=== PATIENT | male | born 1960 | race Caucasian/White ===

== ENCOUNTER 2016-12-26 10:54 | Day surgery (SDC) | payer OTHER ==
[~2016-12-26] VITALS: Ht 172.7 cm; Wt 65.8 kg
[~2016-12-26 10:54] MED LIST: ALBUTEROL2.5 MG/3 M IN; APAP/HYDRO325 MG/10 OR; AUGMENTIN875TAB OR; B12 LIQUID IM; B12 LIQUID OR; CARAFATE1 GM/10 M1 OR; CARISOPRODOL350 MG PO; CEPHALEXIN500 MG OR; CEPHALEXIN500 MG PO; CHANTIX CONTINUI1 MG PO; CHANTIX STARTIN0.5 & PO; CIPROFLOXACN500 MG PO; DEPO-MEDROL80 MG/ML IM; DEXILANT60 MG PO; DILAUDID8 MG OR; DURAGESIC25 MCG/PAT TD; DURAGESIC75 MCG/H1 TD; ENSURE COMPLETE NUTR PO; FENTANYL75 MCG/HR TD; FLEXERIL OR; FLEXERIL PO; FLOMAX0.4 M1 PO; GABAPENTIN300 MG PO; HYDROCO/APAP1 T13 OR; IBUPROFEN600 MG PO; LEVAQUIN500 MG PO; LORTAB 10 PO; LORTAB 10-325 M1 TAB PO; LORTAB 1010 MG PO; LORTAB 7.5-3251 TAB PO; LORTAB5 PO; LOVASTATIN20 MG PO; MEDDOSEPAK PO; METRONIDAZOL500 MG PO; NABUMETONE750 MG PO; NAPROSYN375 MG PO; NAPROSYN500 MG PO; NAPROXEN375 MG; NAPROXEN375 MG PO; NAPROXEN500 MG PO; NEBULIZE1 INH; NEBULIZE2 IN; NEXIUM40 M1 PO; NO; NO HOME MEDS; NO MEDS AT THIS TIME; OMEPRAZOLE40 MG PO; OXYCOD/APAP1 TA4; OXYCODONE HCL30 MG PO; OXYCODONE30 MG PO; OXYCONTIN30 MG PO; PANTOPRAZOLE SO40 MG PO; PERCOCET 5/321 COMBO PO; PERCOCET1 TA4 PO; PREDNISONE10 MG PO; PREVACID30 M3 PO; PRILOSEC40 MG PO; PT DENIES MEDS; SOMA250 MG OR; SOMA350 MG PO; STERAPRED DS10 MG PO; TRAZODONE50 MG PO; TUBERSOL5 MG/0.1 M ID; VICOPROFEN OR; ZANTAC 150; [UNRECOGNIZED DRUG - REMARK]
[2016-12-26 13:13] VITALS: BP 102/55
== END 2016-12-26 13:35 | disposition home or self-care (01) | DRG 392 ==
LOC: ENDO 10:54 → ORM 14:10 → ENDO 14:20 → ORM 15:30 → ENDO 21:30
PROVIDERS: ATTEND Internal Medicine Gastroenterology
PROC: 0DB48ZX Excision of Esophagogastric Junction, Via Natural or Artificial Opening Endoscopic, Diagnostic (ICD-10-PCS; principal; 2016-12-26)
PROC: 0DB58ZX Excision of Esophagus, Via Natural or Artificial Opening Endoscopic, Diagnostic (ICD-10-PCS; 2016-12-26)
DX: R13.10 Dysphagia, unspecified (principal); K22.8 Other specified diseases of esophagus; R11.0 Nausea; K21.9 Gastro-esophageal reflux disease without esophagitis; K59.00 Constipation, unspecified; K22.70 Barrett's esophagus without dysplasia; K29.70 Gastritis, unspecified, without bleeding; Q40.8 Other specified congenital malformations of upper alimentary tract; K44.9 Diaphragmatic hernia without obstruction or gangrene; Z86.010 Personal history of colon polyps

== ENCOUNTER 2017-03-28 09:25 | Emergency (ER) | payer OTHER ==
[~2017-03-28] VITALS: Ht 172.7 cm; Wt 50.0 kg
[2017-03-28] MEDS ORDERED: DURAGESIC100 MCG/HR TD (09:37)
[2017-03-28 10:44] LABS: HEMATOCRIT 34.2 % (39.0-50.0); HEMOGLOBIN 11.2 g/dl (14.0-18.0); IMMATURE GRANULOCYTES 0.3 % (0.0-1.0); MEAN CELL VOLUME 95.3 fL CALC (80.0-100.0); MEAN CORPUSCULAR HGB 31.2 pG CALC (26.0-32.0); MEAN CORPUSCULAR HGB CONC 32.7 g/L CALC (32.0-36.0); NEUT# 10.33 thou/uL (1.82-7.42); RED BLOOD COUNT 3.59 mill/uL (4.70-6.10); RED CELL DISTRI WIDTH 12.8 % (11.5-15.5)
[2017-03-28 10:47] LABS: URINE BILIRUBIN - DIPSTICK NEGATIVE (NEGATIVE); URINE BLOOD DIPSTICK NEGATIVE (NEGATIVE); URINE CLARITY CLEAR; URINE COLOR YELLOW; URINE GLUCOSE - DIPSTICK NEGATIVE (NEGATIVE); URINE KETONE NEGATIVE (NEGATIVE); URINE LEUK ESTERASE NEGATIVE (NEGATIVE); URINE NITRITE - DIPSTICK NEGATIVE (Negative); URINE PH 6.5 (4.5-8.0); URINE PROTEIN - DIPSTICK NEGATIVE (NEG-TRACE); URINE SPECIFIC GRAVITY 1.015; URINE UROBILINOGEN - DIPSTICK 0.2 E.U./dL (0.2)
[2017-03-28 10:49] LABS: ALBUMIN 4.2 g/dL (3.2-5.0); ALKALINE PHOSPHATASE 116 u/l (38-126); ANION GAP 16 (6-22 (CALC)); BILIRUBIN, TOTAL 0.5 mg/dL (0.0-1.4); BUN 12 mg/dL (9-20); BUN/CREATININE RATIO 13 (12-20 (CALC)); CALCIUM 9.7 mg/dL (8.4-10.2); CARBON DIOXIDE 26 mmol/l (22-30); CHLORIDE 103 mmol/l (95-108); CREATININE 0.9 mg/dL (0.7-1.3); GFR > 60 ML/MIN (>=60 (CALC)); GFR FOR AFR.AMER. > 60 ML/MIN (>=60 (CALC)); GLUCOSE 82 mg/dL (75-110); SGOT/AST 37 u/l (17-59); SGPT/ALT 48 u/l (21-72); SODIUM 141 mmol/l (137-146); TOTAL PROTEIN 6.9 g/dL (6.3-8.2)
[2017-03-28] MEDS ORDERED: CEPHALEXIN500 M1 PO (11:36)
[2017-03-28 11:41] VITALS: BP 106/62
== END 2017-03-28 12:25 | disposition home or self-care (01) | DRG 816 ==
LOC: ED 09:25
PROVIDERS: Emergency Medicine
DX: D72.829 Elevated white blood cell count, unspecified (principal); N39.9 Disorder of urinary system, unspecified; M19.90 Unspecified osteoarthritis, unspecified site; N40.0 Benign prostatic hyperplasia without lower urinary tract symptoms; Z98.890 Other specified postprocedural states

== ENCOUNTER 2017-04-06 23:04 | Emergency (ER) | payer OTHER ==
[~2017-04-06] VITALS: Ht 172.7 cm; Wt 66.6 kg
[~2017-04-06 23:04] MED LIST changes: +CEPHALEXIN500 M1 PO; +DURAGESIC100 MCG/HR TD
[2017-04-07] MEDS ORDERED: LORTAB 5/3255 MG PO (00:34)
[2017-04-07 01:14] VITALS: BP 128/68
== END 2017-04-07 01:14 | disposition home or self-care (01) | DRG 93 ==
LOC: ED 23:04
DX: G89.29 Other chronic pain (principal); M54.5 Low back pain; Z98.1 Arthrodesis status; Z96.653 Presence of artificial knee joint, bilateral; Z96.612 Presence of left artificial shoulder joint

== ENCOUNTER 2017-06-23 14:36 | Inpatient (IN) | payer OTHER ==
[~2017-06-23] VITALS: Ht 172.7 cm; Wt 65.8 kg
[~2017-06-23 14:36] MED LIST changes: +LORTAB 5/3255 MG PO; +MOTRIN400 MG/TAB PO; +SUPER OMEGA PO; +TAMSULOSIN HCL0.4 MG PO
[2017-06-26] VITALS (7 sets, daily range): BP systolic 104–130; BP diastolic 34–67
[2017-06-26] MEDS ORDERED: RANITIDINE150 M1 PO (09:19)
[2017-06-26] MEDS ORDERED: TAMSULOSIN HCL0.4 MG PO (18:30)
[2017-06-27 03:32] VITALS: BP 110/67
[2017-06-27 06:47] LABS: HEMATOCRIT 29.3 % (39.0-50.0); HEMOGLOBIN 9.4 g/dl (14.0-18.0)
[2017-06-27 15:42] VITALS: BP 99/59
[2017-06-27 19:35] VITALS: BP 98/67
[2017-06-28 00:05] VITALS: BP 118/63
[2017-06-28 05:15] LABS: HEMATOCRIT 31.7 % (39.0-50.0); HEMOGLOBIN 10.2 g/dl (14.0-18.0); MEAN CELL VOLUME 89.8 fL CALC (80.0-100.0); MEAN CORPUSCULAR HGB 28.9 pG CALC (26.0-32.0); MEAN CORPUSCULAR HGB CONC 32.2 g/L CALC (32.0-36.0); RED BLOOD COUNT 3.53 mill/uL (4.70-6.10); RED CELL DISTRI WIDTH 14.2 % (11.5-15.5)
[2017-06-28 05:33] LABS: ANION GAP 13 (6-22 (CALC)); BUN 8 mg/dL (9-20); BUN/CREATININE RATIO 12 (12-20 (CALC)); CARBON DIOXIDE 25 mmol/l (22-30); CHLORIDE 103 mmol/l (95-108); CREATININE 0.7 mg/dL (0.7-1.3); GFR > 60 ML/MIN (>=60 (CALC)); GFR FOR AFR.AMER. > 60 ML/MIN (>=60 (CALC)); GLUCOSE 112 mg/dL (75-110); MAGNESIUM 2.1 mg/dL (1.6-2.3); SODIUM 137 mmol/l (137-146)
[2017-06-28 08:09] VITALS: BP 121/60
[2017-06-28] MEDS ORDERED: BACTRIM DS1 TAB PO (10:40)
[2017-06-28 11:50] VITALS: BP 112/62
== END 2017-06-28 14:00 | disposition home or self-care (01) | DRG 483 ==
LOC: MS2 06-26 09:07
PROVIDERS: ADMIT Orthopaedic Surgery; ATTEND Internal Medicine
PROC: 0RRJ00Z Replacement of Right Shoulder Joint with Reverse Ball and Socket Synthetic Substitute, Open Approach (ICD-10-PCS; principal; 2017-06-26)
PROC: 0LS30ZZ Reposition Right Upper Arm Tendon, Open Approach (ICD-10-PCS; 2017-06-26)
DX: M19.011 Primary osteoarthritis, right shoulder (principal); J43.9 Emphysema, unspecified; L76.32 Postprocedural hematoma of skin and subcutaneous tissue following other procedure; M75.111 Incomplete rotator cuff tear or rupture of right shoulder, not specified as traumatic; S46.211A Strain of muscle, fascia and tendon of other parts of biceps, right arm, initial encounter; G25.81 Restless legs syndrome; E78.00 Pure hypercholesterolemia, unspecified; G47.00 Insomnia, unspecified; K21.9 Gastro-esophageal reflux disease without esophagitis; K22.70 Barrett's esophagus without dysplasia; H52.00 Hypermetropia, unspecified eye; G89.4 Chronic pain syndrome; N40.1 Benign prostatic hyperplasia with lower urinary tract symptoms; R50.82 Postprocedural fever; X58.XXXA Exposure to other specified factors, initial encounter; Y83.1 Surgical operation with implant of artificial internal device as the cause of abnormal reaction of the patient, or of later complication, without mention of misadventure at the time of the procedure; Y92.239 Unspecified place in hospital as the place of occurrence of the external cause; Z87.891 Personal history of nicotine dependence; Z96.653 Presence of artificial knee joint, bilateral
CPT/HCPCS: J2710

== ENCOUNTER 2017-07-29 12:23 | Emergency (ER) | payer OTHER ==
[~2017-07-29] VITALS: Ht 172.7 cm; Wt 68.0 kg
[~2017-07-29 12:23] MED LIST changes: +BACTRIM DS1 TAB PO; +RANITIDINE150 M1 PO
[2017-07-29] MEDS ORDERED: MEDDOSEPAK PO (16:44)
[2017-07-29] MEDS ORDERED: PERCOCET 10/31 COMBO PO (16:44)
[2017-07-29 17:04] VITALS: BP 116/69
== END 2017-07-29 16:56 | disposition home or self-care (01) | DRG 552 ==
LOC: ED 12:23
DX: M51.37 Other intervertebral disc degeneration, lumbosacral region (principal); M54.5 Low back pain; W10.8XXA Fall (on) (from) other stairs and steps, initial encounter; Y93.9 Activity, unspecified; Y92.009 Unspecified place in unspecified non-institutional (private) residence as the place of occurrence of the external cause

== ENCOUNTER 2020-08-20 10:58 | Emergency (ER) | payer OTHER ==
[~2020-08-20] VITALS: Ht 172.7 cm; Wt 65.0 kg
[~2020-08-20 10:58] MED LIST changes: +PERCOCET 10/31 COMBO PO
[2020-08-20 13:48] VITALS: BP 129/89
== END 2020-08-20 13:48 | disposition home or self-care (01) ==
LOC: ED 10:58
DX: S22.050A Wedge compression fracture of T5-T6 vertebra, initial encounter for closed fracture (principal); S22.060A Wedge compression fracture of T7-T8 vertebra, initial encounter for closed fracture; W10.9XXA Fall (on) (from) unspecified stairs and steps, initial encounter

== ENCOUNTER 2020-08-27 15:19 | Observation (INO) | payer OTHER ==
[~2020-08-27] VITALS: Ht 172.7 cm; Wt 66.7 kg
--- NOTE | 2020-08-27 15:37 | NUR ---
PATIENT TO ROOM WITH A STEADY GAIT WITH USE OF CANE.
--- NOTE | 2020-08-27 16:06 | NUR ---
PT TRANSFERRED TO ER BED 8 FOR HIGHER LEVEL OF CARE. REPORT GIVEN TO REAL RN AND CARE RELINQUISHED.
--- NOTE | 2020-08-27 16:07 | NUR ---
REPORT RECEIVED FROM GINA GOTTLIEB WITH SHASHA FUENTES. PT REPORTS FALLING 1 MONTH AGO AND AGAIN 1 WEEK AGO WHEN HE CAME TO THE ER FOR EVAL AND WAS DX WITH LUMBAR FX AT THAT TIME. PT STATES 2 DAYS AGO HE NOTICED WEAKNESS TO HIS LEFT LEG UPON WAKING UP IN AM, AND PROGRESSIVELY THROUGHOUT THE DAY. NIH PERFORMED WITH SHASHA FUENTES AND NOTED TO BE A 1 RELATED TO LEFT LEG DECREASED SENSATION. IV INITIATED AND BLOOD SPECIMENS OBTAINED. PT TRANSPORTED TO RADIOLOGY FOR ORDERED CT SCANS.
[2020-08-27 16:34] LABS: GFR > 60 ML/MIN (>=60 (CALC)); GFR FOR AFR.AMER. > 60 ML/MIN (>=60 (CALC))
[2020-08-27 16:35] LABS: HEMOGLOBIN 10.8 g/dl (14.0-18.0); IMMATURE GRANULOCYTES 0.4 % (0.0-5.0); MEAN CORPUSCULAR HGB 28.1 pG CALC (26.0-32.0); MEAN CORPUSCULAR HGB CONC 30.9 g/dL CAL (32.0-36.0); NEUT# 12.15 thou/uL (1.82-7.42); RED BLOOD COUNT 3.85 mill/uL (4.70-6.10); RED CELL DISTRI WIDTH 13.8 % (11.5-15.5)
[2020-08-27 16:36] LABS: MEAN CELL VOLUME 90.9 fL CALC (80.0-100.0)
[2020-08-27 16:45] LABS: ALBUMIN 4.1 g/dL (3.2-5.0); ALKALINE PHOSPHATASE 132 u/l (38-126); BILIRUBIN, TOTAL 0.4 mg/dL (0.0-1.4); BUN 20 mg/dL (8-23); BUN/CREATININE RATIO 18 (12-20 (CALC)); CHLORIDE 107 mmol/l (95-108); CREATININE 1.1 mg/dL (0.7-1.3); GFR > 60 ML/MIN (>=60 (CALC)); GFR FOR AFR.AMER. > 60 ML/MIN (>=60 (CALC)); POTASSIUM 3.8 mmol/l (3.5-5.1); SGOT/AST 33 u/l (19-48); SODIUM 137 mmol/l (137-146); TOTAL PROTEIN 7.5 g/dL (6.3-8.2)
[2020-08-27 16:46] LABS: ANION GAP 14 (6-22 (CALC)); CARBON DIOXIDE 20 mmol/l (22-30)
[2020-08-27 16:52] LABS: PROTHROMBIN TIME 9.9 SECONDS (9.0-12.5)
--- NOTE | 2020-08-27 16:59 | NUR ---
RETURNED FROM CT, AWAITING CONSULT WITH TELE NEURO
--- NOTE | 2020-08-27 17:00 | NUR ---
PT UNABLE TO RECALL HOME MEDICATIONS, RECALLS BEING ON A CHOLESTEROL MEDICATION.
--- NOTE | 2020-08-27 17:05 | NUR ---
TELENEUROLOGY DR HITCHCOCK ON [place] FOR NEURO CONSULT.R
--- NOTE | 2020-08-27 18:30 | NUR ---
REPORT GIVEN TO GINA NG.
--- NOTE | 2020-08-27 18:45 | NUR ---
Admission Note Report Given to: GINA NG Transported by: Wheelchair X Stretcher Transported with: X Nurse Transporter X Patent IV O2 X Instructional Coordinator Location: X ICU MS2 PT TRANSPORTED TO ICU VIA STRETCHER IN STABLE CONDIITON.
--- NOTE | 2020-08-27 18:50 | NUR ---
TO ICU 3 VIA STRETCHER. PT MOVED SELF OVER TO BED. REMOVED PANTS AND GOWN ON. FIRST WORDS FROM PATIENT IS THAT HE WANTS PAIN MEDICATION HE HAS NOT GOTTEN ANY IN THE ER. BERENICE EXPLAINED THAT SHE IS WAITING FOR VERIFICATION OF WHAT HE IS TALKING SO IT CAN BE ORDERED, PHARMACY REVIEW AND THAN ACCESSABLE BY NURSE. PT SAID THAT HE NORMALLY TAKES OXYCODEON 30MG PO BID. HOWEVER, THAT RELEIVES HIS PAIN BEFORE HAVING 2 BROKEN VERTEBRAE AND IS NOT RELEIVING PAIN WITH THE BROKEN BONES. IF HE IS ONLY GETTING HIS NORMAL MEDICINE HE WILL JUST GO HOME NOW. I ASKED THAT HE WAIT TO SEE WHAT IS ORDERED AND GO FROM THERE. HE AGREED.
[2020-08-27 19:00] VITALS: BP 146/70
[2020-08-27 19:15] VITALS: BP 134/64
[2020-08-27 19:30] VITALS: BP 129/65
--- NOTE | 2020-08-27 19:30 | NUR ---
KISHA OBTAINED INFORMATION FROM [employer] TO MAKE SURE OF MEDICAITON THAT PT NORMALLY TAKES. THIS IS NOT ECCEPTABLE TO PATIENT. PT REQUESTING DILAUDID 2MG IV EVERY 6 OURS INSTEAD OF HIS NORMALLY PRESCRIBED PILLS. DR FARRIS WAS NOTIFED AND SSAID TO ORDER ROUTINE MEDICATION- PT HERE WITH STROKE S/S AT LEAST UNTIL AFTER MRI REULTS TOMORROW. WHEN PT INFORMED OF THIS THE SAID TO DISCONNECT HIM THAT IF ALL HE IS GETTING IS HIS HOME MEDS, HE CAN TAKE THAT FROM HOME. DR FARRIS AWARE AND SAID TO LET PT SIGN OUT AGAINST MEDICAL ADVISE.
--- NOTE | 2020-08-27 19:45 | NUR ---
PT REQUESTED PAPER TO SIGN TO LEAVE. AMA FORM GIVEN AFTER ENCOURAGED TO [facility] FOR MRI. I ADVISED THAT HIS CONDITION COULD GET WORSE, HAVE A STROKE, PERMANENT DISABILITY OR . HE SAID THAT HE IS AWARE BUT IS AGGRIVATED AND THIS POINT AND JUST WANTS TO GO HOME. PT INFORMED TO RETUN TO THIS ER OR SOMEWHERE IF S/S CONTINUE OR GET WORSE. PT DRESSED SELF AND ASSISTED TO TRUCK VIA W/C. IN ROUTE HE WAS GOING TO CALL FOR A PIZZA TO TECHNICAL DEVELOPER ON WAY HOME. PT THANKED NURSE FOR CARE. GAIT STEADY WITH CANE TO W/C AND THEN TO TRUCK.
== END 2020-08-27 19:45 | disposition left against medical advice (07) ==
LOC: ED 15:19 → ED-I 17:35 → ED 17:48 → ICU 17:49
PROVIDERS: Family Medicine; ADMIT Internal Medicine; ATTEND Internal Medicine
DX: R53.1 Weakness (principal); R20.0 Anesthesia of skin; S22.050D Wedge compression fracture of T5-T6 vertebra, subsequent encounter for fracture with routine healing; S22.060D Wedge compression fracture of T7-T8 vertebra, subsequent encounter for fracture with routine healing; M89.49 Other hypertrophic osteoarthropathy, multiple sites; N40.0 Benign prostatic hyperplasia without lower urinary tract symptoms; M54.9 Dorsalgia, unspecified; G89.29 Other chronic pain; W19.XXXD Unspecified fall, subsequent encounter; Z98.1 Arthrodesis status; Z20.828 Contact with and (suspected) exposure to other viral communicable diseases
CPT/HCPCS: Q9967

== ENCOUNTER 2020-09-04 12:46 | Emergency (ER) | payer OTHER ==
[~2020-09-04] VITALS: Ht 172.7 cm; Wt 65.9 kg
[2020-09-04] MEDS ORDERED: LIPITOR10 M1 PO (13:25)
[2020-09-04] MEDS ORDERED: GABAPENTIN300 M2 PO (13:25)
[2020-09-04] MEDS ORDERED: OXYCODONE30 MG PO (13:26)
[2020-09-04] MEDS ORDERED: IRON325 M1 PO (13:26)
[2020-09-04 16:07] VITALS: BP 114/87
== END 2020-09-04 16:07 | disposition home or self-care (01) ==
LOC: ED 12:46
DX: G89.29 Other chronic pain (principal); M54.2 Cervicalgia; M54.9 Dorsalgia, unspecified; Z98.1 Arthrodesis status; Z86.73 Personal history of transient ischemic attack (TIA), and cerebral infarction without residual deficits

== ENCOUNTER 2020-10-06 18:04 | Emergency (ER) | payer MEDICAID ==
[~2020-10-06] VITALS: Ht 172.7 cm; Wt 65.9 kg
[~2020-10-06 18:04] MED LIST changes: +GABAPENTIN300 M2 PO; +IRON325 M1 PO; +LIPITOR10 M1 PO
[2020-10-06] MEDS ORDERED: ATORVASTATIN CA20 MG PO (19:08)
[2020-10-06] MEDS ORDERED: KEFLEX500 M1 PO ×2 (19:39→19:40)
[2020-10-06 20:16] VITALS: BP 118/78
[2020-10-08] MEDS ORDERED: [UNRECOGNIZED DRUG - REMARK] (01:39)
[2020-10-08] MEDS ORDERED: WATER PILL PO (01:39)
[2020-10-08] MEDS ORDERED: OXYCODONE30 MG PO ×2 (01:40→07:46)
[2020-10-08] MEDS ORDERED: FUROSEMIDE20 MG PO (07:44)
[2020-10-08] MEDS ORDERED: CEPHALEXIN500 MG PO (07:44)
[2020-10-08] MEDS ORDERED: GABAPENTIN300 M2 PO (07:45)
[2020-10-08] MEDS ORDERED: TIZANIDINE HYDRO4 M1 PO (07:46)
[2020-10-08] MEDS ORDERED: LIPITOR20 M1 PO (07:46)
[2020-10-08] MEDS ORDERED: FLONASE AL50 MCG/ACT (07:47)
[2020-10-08] MEDS ORDERED: SYMBICORT1 AE1 IN (07:47)
[2020-10-09] MEDS ORDERED: PREDNISONE10 MG PO (08:53)
== END 2020-10-06 20:16 | disposition home or self-care (01) ==
LOC: ED 18:04
DX: L03.114 Cellulitis of left upper limb (principal); Z86.73 Personal history of transient ischemic attack (TIA), and cerebral infarction without residual deficits

== ENCOUNTER 2020-11-01 23:44 | Emergency (ER) | payer MEDICAID ==
[~2020-11-01] VITALS: Ht 172.7 cm; Wt 65.9 kg
[~2020-11-01 23:44] MED LIST changes: +ATORVASTATIN CA20 MG PO; +FLONASE AL50 MCG/ACT; +FUROSEMIDE20 MG PO; +KEFLEX500 M1 PO; +LIPITOR20 M1 PO; +SYMBICORT1 AE1 IN; +TIZANIDINE HYDRO4 M1 PO; +WATER PILL PO; +[UNRECOGNIZED DRUG - REMARK]
[2020-11-02 00:43] VITALS: BP 112/53
== END 2020-11-02 01:15 | disposition home or self-care (01) ==
LOC: ED 23:44
DX: S81.811A Laceration without foreign body, right lower leg, initial encounter (principal); J44.9 Chronic obstructive pulmonary disease, unspecified; E78.00 Pure hypercholesterolemia, unspecified; W01.0XXA Fall on same level from slipping, tripping and stumbling without subsequent striking against object, initial encounter; Y92.009 Unspecified place in unspecified non-institutional (private) residence as the place of occurrence of the external cause; Z86.73 Personal history of transient ischemic attack (TIA), and cerebral infarction without residual deficits

== ENCOUNTER 2020-12-24 | Observation (INO) | payer MEDICAID ==
[2020-12-24 16:19] LABS: IMMATURE GRANULOCYTES 0.2 % (0.0-5.0); MEAN CELL VOLUME 83.8 fL CALC (80.0-100.0); MEAN CORPUSCULAR HGB 25.6 pG CALC (26.0-32.0); MEAN CORPUSCULAR HGB CONC 30.5 g/dL CAL (32.0-36.0); NEUT# 7.83 thou/uL (1.82-7.42); RED BLOOD COUNT 4.5 mill/uL (4.70-6.10)
[2020-12-24 16:22] LABS: HEMATOCRIT 37.7 % (39.0-50.0); HEMOGLOBIN 11.5 g/dl (14.0-18.0)
[2020-12-24 16:44] LABS: ALBUMIN 4.2 g/dL (3.2-5.0); ALKALINE PHOSPHATASE 98 u/l (38-126); BILIRUBIN, TOTAL 0.5 mg/dL (0.0-1.4); BUN 19 mg/dL (8-23); BUN/CREATININE RATIO 17 (12-20 (CALC)); CARBON DIOXIDE 24 mmol/l (22-30); CHLORIDE 104 mmol/l (95-108); CREATININE 1.1 mg/dL (0.7-1.3); GFR > 60 ML/MIN (>=60 (CALC)); GFR FOR AFR.AMER. > 60 ML/MIN (>=60 (CALC)); SGOT/AST 26 u/l (19-48); SODIUM 137 mmol/l (137-146); TOTAL PROTEIN 7.2 g/dL (6.3-8.2)
[2020-12-24 16:53] LABS: ANION GAP 13 (6-22 (CALC)); POTASSIUM 3.5 mmol/l (3.5-5.1)
[2020-12-24 18:56] VITALS: BP 129/69
[2020-12-25 04:00] VITALS: BP 115/65
[2020-12-25 05:40] LABS: HEMATOCRIT 38.1 % (39.0-50.0); HEMOGLOBIN 11.4 g/dl (14.0-18.0); IMMATURE GRANULOCYTES 0.3 % (0.0-5.0); MEAN CELL VOLUME 84.9 fL CALC (80.0-100.0); MEAN CORPUSCULAR HGB 25.4 pG CALC (26.0-32.0); MEAN CORPUSCULAR HGB CONC 29.9 g/dL CAL (32.0-36.0); NEUT# 8.56 thou/uL (1.82-7.42); RED BLOOD COUNT 4.49 mill/uL (4.70-6.10); RED CELL DISTRI WIDTH 17.2 % (11.5-15.5)
[2020-12-25 06:00] LABS: ALBUMIN 3.8 g/dL (3.2-5.0); ALKALINE PHOSPHATASE 100 u/l (38-126); ANION GAP 10 (6-22 (CALC)); BILIRUBIN, TOTAL 0.5 mg/dL (0.0-1.4); BUN 20 mg/dL (8-23); BUN/CREATININE RATIO 20 (12-20 (CALC)); CARBON DIOXIDE 25 mmol/l (22-30); CHLORIDE 105 mmol/l (95-108); GFR > 60 ML/MIN (>=60 (CALC)); GFR FOR AFR.AMER. > 60 ML/MIN (>=60 (CALC)); POTASSIUM 3.8 mmol/l (3.5-5.1); SGOT/AST 26 u/l (19-48); SODIUM 136 mmol/l (137-146); TOTAL PROTEIN 6.6 g/dL (6.3-8.2)
[2020-12-25 07:54] VITALS: BP 101/66
[2020-12-25 10:26] LABS: C-REACTIVE PROTEIN 1.6 mg/dL (0-0.9)
[2020-12-25 15:04] VITALS: BP 114/45
[2020-12-25 18:00] VITALS: BP 114/67
[2020-12-26 04:27] VITALS: BP 116/65
[2020-12-26 06:20] LABS: HEMATOCRIT 37.2 % (39.0-50.0); HEMOGLOBIN 11.1 g/dl (14.0-18.0); MEAN CELL VOLUME 85.5 fL CALC (80.0-100.0); MEAN CORPUSCULAR HGB 25.5 pG CALC (26.0-32.0); MEAN CORPUSCULAR HGB CONC 29.8 g/dL CAL (32.0-36.0); RED BLOOD COUNT 4.35 mill/uL (4.70-6.10); RED CELL DISTRI WIDTH 17.1 % (11.5-15.5)
[2020-12-26 07:05] LABS: BUN 17 mg/dL (8-23); BUN/CREATININE RATIO 15 (12-20 (CALC)); CALCULATED LDLCHOLESTEROL 65 mg/dL (62-129 (CALC)); CARBON DIOXIDE 26 mmol/l (22-30); CHLORIDE 103 mmol/l (95-108); CHOLESTEROL HDL RATIO 2.9 (<4.4 (CALC)); CREATININE 1.1 mg/dL (0.7-1.3); GFR > 60 ML/MIN (>=60 (CALC)); GFR FOR AFR.AMER. > 60 ML/MIN (>=60 (CALC)); HDL CHOLESTEROL 47 mg/dL (>=40); SODIUM 135 mmol/l (137-146); TOTAL TRIGLYCERIDES 125 mg/dl (30-149); VLDL CHOLESTROL 25 mg/dl (4-45 (CALC))
[2020-12-26 07:11] LABS: ANION GAP 11 (6-22 (CALC)); POTASSIUM 4.6 mmol/l (3.5-5.1); TOTAL CHOLESTEROL 137 mg/dl (0-199)
[2020-12-26 07:36] VITALS: BP 106/69
[2020-12-26] MEDS ORDERED: DOXYCYCL HYC100 MG PO (11:09)
== END 2020-12-26 12:34 | disposition home or self-care (01) ==
PROVIDERS: Nurse Practitioner; Nurse Practitioner Family; ADMIT Internal Medicine
DX: L03.114 Cellulitis of left upper limb (principal); M89.49 Other hypertrophic osteoarthropathy, multiple sites; M54.16 Radiculopathy, lumbar region; J44.9 Chronic obstructive pulmonary disease, unspecified; E78.5 Hyperlipidemia, unspecified; N40.0 Benign prostatic hyperplasia without lower urinary tract symptoms; Z86.73 Personal history of transient ischemic attack (TIA), and cerebral infarction without residual deficits; Z79.891 Long term (current) use of opiate analgesic; Z20.822 Contact with and (suspected) exposure to COVID-19
CPT/HCPCS: G0378; J1650

== ENCOUNTER 2021-04-17 01:18 | Observation (INO) | payer MEDICAID ==
[~2021-04-17] VITALS: Ht 172.7 cm; Wt 62.0 kg
[~2021-04-17 01:18] MED LIST changes: +DOXYCYCL HYC100 MG PO
--- NOTE | 2021-04-17 01:25 | NUR ---
PT ARRIVED WITH C/O A MEDICATION REACTION, UPON PLACEMENT OF PATIENT IN ROOM 6, RN BECAME CONCERNED WITH SYMPTOMS, INCREASED WEAKNESS ON RUE, LEFT PUPIL DILATION. STROKE ALERT CALLED OVERHEAD, PT MOVED TO CT FOR BRAIN SCAN WITH RN X 2.
--- NOTE | 2021-04-17 01:39 | NUR ---
STROKE ALERT CALLED. PT IMMEDIATELY TO CT VIA STRETCHER WITH Danae WANG RN AND Denisha BAER RN. TELENEURO CART TAKEN. AT CT AREA PT TRANSFERRED TO TABLE AND NON-CONTRAST CT DONE.
--- NOTE | 2021-04-17 01:50 | NUR ---
UNABLE TO HEAR AUDIO ON [employer] COMPUTER. TROUBLE SHOOTING MANAGED BY Denisha BAER RN. Danae WANG RN WITH PT.
--- NOTE | 2021-04-17 01:55 | NUR ---
SERUM CREATININE 0.09 REPORTED BY Nieves ALVARENGA RESET MERCHANDISER.
--- NOTE | 2021-04-17 01:55 | NUR ---
PARTH #20G ESTABLISHED. LAB WORK COLLECTED. IV SALINE LOCKED. POINT OF CARE GLUCOSE 96mg/dl.
--- NOTE | 2021-04-17 02:00 | NUR ---
SERUM CREATININE 0.09 REPORTED BY Nieves ALVARENGA BRUSH HAND.
--- NOTE | 2021-04-17 02:00 | NUR ---
UNABLE TO ESTABLISH AUDIO CONNECTION, ONLY VISUAL. NEW TELENEURO COMPUTER OBTAINED AND FUNCTIONING. NEURO EXAM STARTED AT THIS TIME.
[2021-04-17 02:07] LABS: GFR > 60 ML/MIN (>=60 (CALC)); GFR FOR AFR.AMER. > 60 ML/MIN (>=60 (CALC))
[2021-04-17 02:08] LABS: HEMATOCRIT 40.2 % (39.0-50.0); HEMOGLOBIN 12.6 g/dl (14.0-18.0); IMMATURE GRANULOCYTES 0.2 % (0.0-5.0); MEAN CELL VOLUME 88.2 fL CALC (80.0-100.0); MEAN CORPUSCULAR HGB 27.6 pG CALC (26.0-32.0); MEAN CORPUSCULAR HGB CONC 31.3 g/dL CAL (32.0-36.0); NEUT# 12.34 thou/uL (1.82-7.42); RED BLOOD COUNT 4.56 mill/uL (4.70-6.10); RED CELL DISTRI WIDTH 19.4 % (11.5-15.5)
--- NOTE | 2021-04-17 02:10 | NUR ---
TELENEURO EXAM COMPLETE. NEUROLOGIST DR. LEGIH EXCLUDES PT FROM [facility].
--- NOTE | 2021-04-17 02:18 | NUR ---
DURING FURTHER IMAGING STUDIES IV INFILTRATES WITH APPROX 15ML SALINE/ NO CONTRAST INFUSED. NEW SITE INITIATED TO [facility] #20G X1 ATTEMPT BY Denisha BAER RN.
[2021-04-17 02:22] LABS: ALBUMIN 4.1 g/dL (3.2-5.0); ALKALINE PHOSPHATASE 98 u/l (38-126); ANION GAP 14 (6-22 (CALC)); BILIRUBIN, TOTAL 0.3 mg/dL (0.0-1.4); BUN 28 mg/dL (8-23); BUN/CREATININE RATIO 32 (12-20 (CALC)); CARBON DIOXIDE 21 mmol/l (22-30); CHLORIDE 107 mmol/l (95-108); CREATININE 0.9 mg/dL (0.7-1.3); GFR > 60 ML/MIN (>=60 (CALC)); GFR FOR AFR.AMER. > 60 ML/MIN (>=60 (CALC)); POTASSIUM 4.2 mmol/l (3.5-5.1); SGOT/AST 31 u/l (19-48); SODIUM 137 mmol/l (137-146); TOTAL PROTEIN 7.4 g/dL (6.3-8.2)
--- NOTE | 2021-04-17 02:28 | NUR ---
IMAGING STUDIES COMPLETED. PT BACK TO ROOM 6. RE-CONNECTED TO MONITOR. SR 60S PT SEEMS TO BE COMMUNICATING BETTER. REPORTS HEADACHE WITH BLURRED VISION AND SENSITIVITY TO LIGHT. AWARE.
--- NOTE | 2021-04-17 02:30 | NUR ---
LIGHTS DIMMED FOR COMFORT. WARM BLANKET PROVIDED. CALL MAK WITHIN REACH. AGREES TO CALL PRN.
[2021-04-17 02:34] LABS: MYOGLOBIN 29 ng/mL (0 - 121)
--- NOTE | 2021-04-17 03:00 | NUR ---
COVID SWAB COMPLETED.
--- NOTE | 2021-04-17 03:15 | NUR ---
URINE SAMPLE COLLECTED.
--- NOTE | 2021-04-17 03:20 | NUR ---
Nieves ALVARENGA IN ROOM COLLECTING BLOOD CXs
[2021-04-17 03:22] LABS: URINE BILIRUBIN - DIPSTICK NEGATIVE (NEGATIVE); URINE BLOOD DIPSTICK NEGATIVE (NEGATIVE); URINE COLOR YELLOW; URINE GLUCOSE - DIPSTICK NEGATIVE (NEGATIVE); URINE KETONE NEGATIVE (NEGATIVE); URINE LEUK ESTERASE NEGATIVE (NEGATIVE); URINE PROTEIN - DIPSTICK NEGATIVE (NEG-TRACE); URINE UROBILINOGEN - DIPSTICK 0.2 E.U./dL (0.2)
[2021-04-17 03:23] LABS: URINE NITRITE - DIPSTICK NEGATIVE (Negative)
[2021-04-17] MEDS ORDERED: BACLOFEN20 MG PO (03:30)
--- NOTE | 2021-04-17 03:50 | NUR ---
VISUAL ACUITY EXAM. R-EYE 20/25. L-EYE 20/50 WITH REPORTED BLURRED VISION. ASSESMENT REPORTED TO .
--- NOTE | 2021-04-17 03:52 | NUR ---
DR. STODDARD AT BEDSIDE PERFORMING EYE EXAM AND DISCUSSING ADMIT WITH PT.
[2021-04-17 04:39] VITALS: BP 123/72
--- NOTE | 2021-04-17 04:40 | NUR ---
PT RECEIVED FROM ED TO ROOM 272. ARRIVES VIA STRETCHER ACCOMPANIED BY HO FUENTES. PT AMBULATORY TO BED. GAIT UNSTEADY. PT DENIES PAIN AT THIS TIME. ORIENTED TO UNIT, ROOM, CALL MAK, LIGHTS, TV. ICE WATER PROVIDED. CALL MAK WITHIN REACH. AGREES TO CALL PRN.
--- NOTE | 2021-04-17 04:45 | NUR ---
Admission Note Report Given to: Rinku BAÑUELOS RN Transported by: Wheelchair X Stretcher Transported with: X Nurse Transporter X Patent IV O2 X Literacy Teacher Location: ICU X MS2
--- NOTE | 2021-04-17 04:52 | NUR ---
PHYSICAL ASSESMENT COMPLETE. PT CURRENTLY DENIES PAIN OR DISCOMFORT. MEND ASSESSMENT GIVEN PT SCORED A 0. SCHEDULED MEDICATIONS AND PRN MEDICATION ADMINISTERED, SEE E-MAR. PT DENIES ANY NEEDS AT THIS TIME. PLAN OF CARE REVIEWED, PT DENIES QUESTIONS, VERBALIZES UNDERSTANDING. ITEMS WITHIN REACH, BED LOCKED IN LOW POSITION W/ BEDRAILS UP X2. CALL MAK WITHIN REACH, AGREES TO CALL PRN.
--- NOTE | 2021-04-17 06:46 | NUR ---
PT'SNIH SCORED A 1 FOR LEFT EYE BLURRINESS. ALL OTHER ASSESSMENTS ARE NORMAL. PT STATES HE FEELS FINE EXCEPT FOR A HEADACHE THAT STARTED WHEN SYMPTOMS BEGAN AT W, YESTERDAY AFTERNOON. WILL CONTINUE TO MONITOR.
[2021-04-17 07:20] VITALS: BP 110/53
--- NOTE | 2021-04-17 08:00 | NUR ---
PT SLEEPING WHEN ENTERED ROOM. ASSESSMENT AND VITALS DONE. PT IS ALERT AND ORIENTED. PTS S1 AND S2 HEARD. LUNG SOUNDS CLEAR. BOWEL SOUNDS ACTIVE IN ALL 4 QUADRANTS. PEDAL PULSES EQUALLY STRONG BILATERALLY. NIH ASSESSMENT DONE WELL. NO DISTRESS NOTED. CALL LIGHT WITHIN REACH.
--- NOTE | 2021-04-17 10:47 | NUR ---
DR BUSH AND Silvina BARNES APRN AT BEDSIDE DISCUSSING POC
[2021-04-17] MEDS ORDERED: CVS FLUTICASON50 MCG IN (10:49)
[2021-04-17] MEDS ORDERED: VITAMIN D1.25 MG PO (10:51)
[2021-04-17] MEDS ORDERED: SYMBICORT1 AE1 PO (10:53)
[2021-04-17] MEDS ORDERED: MOTRIN400 MG/TAB PO (10:59)
[2021-04-17] MEDS ORDERED: GABAPENTIN300 M2 PO (11:02)
[2021-04-17] MEDS ORDERED: ATORVASTATIN CA20 MG PO (11:03)
[2021-04-17] MEDS ORDERED: ALENDRONATE SOD70 MG PO (11:12)
--- NOTE | 2021-04-17 11:12 | NUR ---
PT WAS TAKEN DOWN TO MRI BY VOLUNTEER IN STABLE CONDITION, BY WHEELCHAIR.
[2021-04-17 11:31] VITALS: BP 108/61
--- NOTE | 2021-04-17 12:14 | NUR ---
PT RETURNED FROM MRI IN WHEELCHAIR. NO DISTRESS NOTED CALL LIGHT WITHIN REACH.
[2021-04-17 15:00] VITALS: BP 100/59
--- NOTE | 2021-04-17 16:00 | NUR ---
PT IN BED. NO DISTRESS NOTED. PTS CALL LIGHT WITHIN REACH.
[2021-04-17 18:53] VITALS: BP 120/64
--- NOTE | 2021-04-18 02:41 | NUR ---
pATIENT HAS A HARD TIME SLEEPING. PLEASENT MAN, NO CONCERNS OR DISCOMFORTS AT THIS TIME
[2021-04-18 03:49] VITALS: BP 112/60
[2021-04-18 05:45] LABS: HEMATOCRIT 38.1 % (39.0-50.0); HEMOGLOBIN 11.9 g/dl (14.0-18.0); MEAN CELL VOLUME 90.5 fL CALC (80.0-100.0); MEAN CORPUSCULAR HGB 28.3 pG CALC (26.0-32.0); MEAN CORPUSCULAR HGB CONC 31.2 g/dL CAL (32.0-36.0); RED BLOOD COUNT 4.21 mill/uL (4.70-6.10); RED CELL DISTRI WIDTH 19.5 % (11.5-15.5)
[2021-04-18 06:01] LABS: ANION GAP 12 (6-22 (CALC)); BUN 16 mg/dL (8-23); BUN/CREATININE RATIO 21 (12-20 (CALC)); CALCULATED LDLCHOLESTEROL 72 mg/dL (62-129 (CALC)); CARBON DIOXIDE 19 mmol/l (22-30); CHLORIDE 110 mmol/l (95-108); CREATININE 0.8 mg/dL (0.7-1.3); GFR > 60 ML/MIN (>=60 (CALC)); GFR FOR AFR.AMER. > 60 ML/MIN (>=60 (CALC)); HDL CHOLESTEROL 47 mg/dL (>=40); POTASSIUM 4.5 mmol/l (3.5-5.1); SODIUM 136 mmol/l (137-146); TOTAL CHOLESTEROL 139 mg/dl (0-199); TOTAL TRIGLYCERIDES 101 mg/dl (30-149); VLDL CHOLESTROL 20 mg/dl (4-45 (CALC))
[2021-04-18 07:17] VITALS: BP 136/66
--- NOTE | 2021-04-18 08:00 | NUR ---
PT IN BED WHEN ENTERED ROOM. ALERT AND ORIENTED. VITALS AND ASSESSMENT DONE. NIH ALSO COMPLETED. S1 AND S2 HEARD. LUNG SOUNDS CLEAR. BOWEL SOUNDS ACTIVE IN ALL 4 QUADRANTS. PEDAL PULSES STRONG BILATERALLY. IV PATENT AND HEALTHY. NO DISTRESS NOTED. CALL LIGHT WITHIN REACH.
[2021-04-18 11:57] VITALS: BP 111/62
--- NOTE | 2021-04-18 12:00 | NUR ---
PT IN BED SLEEP. NO DISTRESS NOTED. CALL LIGHT WITHIN REACH.
[2021-04-18] MEDS ORDERED: FIORICET PO (12:50)
== END 2021-04-18 16:10 | disposition home or self-care (01) ==
LOC: ED 01:18 → ED-I 03:39 → ED 04:00 → MS2 04:01
PROVIDERS: Emergency Medicine; Nurse Practitioner; ADMIT Internal Medicine; ATTEND Internal Medicine
DX: G45.9 Transient cerebral ischemic attack, unspecified (principal); D72.829 Elevated white blood cell count, unspecified; H57.04 Mydriasis; T42.8X5A Adverse effect of antiparkinsonism drugs and other central muscle-tone depressants, initial encounter; G43.909 Migraine, unspecified, not intractable, without status migrainosus; J44.9 Chronic obstructive pulmonary disease, unspecified; G89.4 Chronic pain syndrome; M89.49 Other hypertrophic osteoarthropathy, multiple sites; E78.5 Hyperlipidemia, unspecified; N40.0 Benign prostatic hyperplasia without lower urinary tract symptoms; Z86.73 Personal history of transient ischemic attack (TIA), and cerebral infarction without residual deficits; Z79.891 Long term (current) use of opiate analgesic; Z20.822 Contact with and (suspected) exposure to COVID-19
CPT/HCPCS: G0378; J1650; Q9967

== ENCOUNTER 2021-06-28 01:39 | Emergency (ER) | payer MEDICAID ==
[~2021-06-28] VITALS: Ht 172.7 cm; Wt 57.7 kg
[~2021-06-28 01:39] MED LIST changes: +ALENDRONATE SOD70 MG PO; +BACLOFEN20 MG PO; +CVS FLUTICASON50 MCG IN; +FIORICET PO; +SYMBICORT1 AE1 PO; +VITAMIN D1.25 MG PO
[2021-06-28 02:28] LABS: HEMATOCRIT 39.9 % (39.0-50.0); HEMOGLOBIN 12.5 g/dl (14.0-18.0); IMMATURE GRANULOCYTES 0.8 % (0.0-5.0); MEAN CELL VOLUME 91.3 fL CALC (80.0-100.0); MEAN CORPUSCULAR HGB 28.6 pG CALC (26.0-32.0); MEAN CORPUSCULAR HGB CONC 31.3 g/dL CAL (32.0-36.0); NEUT# 16.41 thou/uL (1.82-7.42); RED BLOOD COUNT 4.37 mill/uL (4.70-6.10); RED CELL DISTRI WIDTH 15.5 % (11.5-15.5); URINE BILIRUBIN - DIPSTICK NEGATIVE (NEGATIVE); URINE BLOOD DIPSTICK NEGATIVE (NEGATIVE); URINE COLOR YELLOW; URINE GLUCOSE - DIPSTICK NEGATIVE (NEGATIVE); URINE KETONE NEGATIVE (NEGATIVE); URINE LEUK ESTERASE NEGATIVE (NEGATIVE); URINE PROTEIN - DIPSTICK NEGATIVE (NEG-TRACE); URINE SPECIFIC GRAVITY >=1.030; URINE UROBILINOGEN - DIPSTICK 0.2 E.U./dL (0.2)
[2021-06-28 02:31] LABS: URINE NITRITE - DIPSTICK NEGATIVE (Negative)
[2021-06-28 02:42] LABS: ALKALINE PHOSPHATASE 112 u/l (38-126); ANION GAP 13 (6-22 (CALC)); BUN 37 mg/dL (8-23); BUN/CREATININE RATIO 26 (12-20 (CALC)); CARBON DIOXIDE 24 mmol/l (22-30); CHLORIDE 102 mmol/l (95-108); CREATININE 1.4 mg/dL (0.7-1.3); GFR 51 ML/MIN (>=60 (CALC)); GFR FOR AFR.AMER. > 60 ML/MIN (>=60 (CALC)); SGOT/AST 31 u/l (19-48); SODIUM 136 mmol/l (137-146); TOTAL PROTEIN 8.1 g/dL (6.3-8.2)
[2021-06-28 02:48] LABS: ALBUMIN 4.8 g/dL (3.2-5.0); BILIRUBIN, TOTAL 0.6 mg/dL (0.0-1.4)
[2021-06-28 02:53] LABS: MYOGLOBIN 227 ng/mL (0 - 121)
[2021-06-28] MEDS ORDERED: SOMA350 MG PO (04:54)
[2021-06-28] MEDS ORDERED: KEFLEX500 MG PO (04:54)
[2021-06-28] MEDS ORDERED: NAPROXEN500 MG PO (04:54)
[2021-06-28 05:40] VITALS: BP 118/79
== END 2021-06-28 05:40 | disposition home or self-care (01) ==
LOC: ED 01:39
PROVIDERS: Emergency Medicine
DX: M79.10 Myalgia, unspecified site (principal); D72.829 Elevated white blood cell count, unspecified; J44.9 Chronic obstructive pulmonary disease, unspecified; M19.90 Unspecified osteoarthritis, unspecified site; N40.0 Benign prostatic hyperplasia without lower urinary tract symptoms; Z86.73 Personal history of transient ischemic attack (TIA), and cerebral infarction without residual deficits; Z20.822 Contact with and (suspected) exposure to COVID-19

== ENCOUNTER 2021-08-29 19:47 | Emergency (ER) | payer OTHER, MEDICAID ==
[~2021-08-29] VITALS: Ht 172.7 cm; Wt 73.0 kg
[~2021-08-29 19:47] MED LIST changes: +KEFLEX500 MG PO
[2021-08-29 20:40] LABS: HEMOGLOBIN 13.7 g/dl (14.0-18.0); IMMATURE GRANULOCYTES 0.5 % (0.0-5.0); MEAN CELL VOLUME 95.2 fL CALC (80.0-100.0); MEAN CORPUSCULAR HGB 29.7 pG CALC (26.0-32.0); MEAN CORPUSCULAR HGB CONC 31.1 g/dL CAL (32.0-36.0); NEUT# 16.12 thou/uL (1.82-7.42); RED BLOOD COUNT 4.62 mill/uL (4.70-6.10); RED CELL DISTRI WIDTH 15.6 % (11.5-15.5)
[2021-08-29 20:50] LABS: CPK 190 u/l (52-200)
[2021-08-29 20:53] LABS: ALBUMIN 4.2 g/dL (3.2-5.0); ALKALINE PHOSPHATASE 101 u/l (38-126); ANION GAP 13 (6-22 (CALC)); BILIRUBIN, TOTAL 0.5 mg/dL (0.0-1.4); BUN 23 mg/dL (8-23); BUN/CREATININE RATIO 24 (12-20 (CALC)); CARBON DIOXIDE 23 mmol/l (22-30); CHLORIDE 110 mmol/l (95-108); ETHYL ALCOHOL 0 mg/dl (0-30); GFR > 60 ML/MIN (>=60 (CALC)); GFR FOR AFR.AMER. > 60 ML/MIN (>=60 (CALC)); POTASSIUM 4.2 mmol/l (3.5-5.1); SGOT/AST 52 u/l (19-48); SODIUM 141 mmol/l (137-146); TOTAL PROTEIN 7.2 g/dL (6.3-8.2)
[2021-08-29 21:00] LABS: ACT PARTIAL THROMBO TIME 19.8 SECONDS (20.0-32.5); INTERNATIONAL NORMALIZED RATIO 0.9 RATIO (0.7-1.3); PROTHROMBIN TIME 9.7 SECONDS (9.0-12.5)
[2021-08-29 22:52] VITALS: BP 120/60
== END 2021-08-29 23:50 | DRG 84 ==
LOC: ED 19:47
PROVIDERS: Family Medicine
DX: S06.5X9A Traumatic subdural hemorrhage with loss of consciousness of unspecified duration, initial encounter (principal); S02.40DA Maxillary fracture, left side, initial encounter for closed fracture; S02.40CA Maxillary fracture, right side, initial encounter for closed fracture; S01.511A Laceration without foreign body of lip, initial encounter; S02.5XXA Fracture of tooth (traumatic), initial encounter for closed fracture; S80.811A Abrasion, right lower leg, initial encounter; J44.9 Chronic obstructive pulmonary disease, unspecified; E78.00 Pure hypercholesterolemia, unspecified; V59.9XXA Occupant (driver) (passenger) of pick-up truck or van injured in unspecified traffic accident, initial encounter; Z86.73 Personal history of transient ischemic attack (TIA), and cerebral infarction without residual deficits; Z98.1 Arthrodesis status; Z20.822 Contact with and (suspected) exposure to COVID-19
CPT/HCPCS: Q9967

== ENCOUNTER 2021-09-05 14:28 | Emergency (ER) | payer OTHER, MEDICAID ==
[~2021-09-05] VITALS: Ht 172.7 cm; Wt 59.1 kg
[2021-09-05 16:26] LABS: HEMATOCRIT 38.8 % (39.0-50.0); IMMATURE GRANULOCYTES 0.2 % (0.0-5.0); MEAN CELL VOLUME 94.4 fL CALC (80.0-100.0); MEAN CORPUSCULAR HGB 29.2 pG CALC (26.0-32.0); MEAN CORPUSCULAR HGB CONC 30.9 g/dL CAL (32.0-36.0); NEUT# 8.16 thou/uL (1.82-7.42); RED BLOOD COUNT 4.11 mill/uL (4.70-6.10); RED CELL DISTRI WIDTH 15.1 % (11.5-15.5)
[2021-09-05 16:51] LABS: ALBUMIN 3.9 g/dL (3.2-5.0); ALKALINE PHOSPHATASE 138 u/l (38-126); ANION GAP 10 (6-22 (CALC)); BILIRUBIN, TOTAL 0.6 mg/dL (0.0-1.4); BUN 19 mg/dL (8-23); BUN/CREATININE RATIO 23 (12-20 (CALC)); CARBON DIOXIDE 27 mmol/l (22-30); CHLORIDE 106 mmol/l (95-108); CREATININE 0.8 mg/dL (0.7-1.3); GFR > 60 ML/MIN (>=60 (CALC)); GFR FOR AFR.AMER. > 60 ML/MIN (>=60 (CALC)); POTASSIUM 4.1 mmol/l (3.5-5.1); SGOT/AST 33 u/l (19-48); SODIUM 139 mmol/l (137-146); TOTAL PROTEIN 7.5 g/dL (6.3-8.2)
[2021-09-05 16:53] LABS: ACT PARTIAL THROMBO TIME 26.4 SECONDS (20.0-32.5); INTERNATIONAL NORMALIZED RATIO 0.9 RATIO (0.7-1.3); PROTHROMBIN TIME 9.5 SECONDS (9.0-12.5)
[2021-09-05 18:04] VITALS: BP 140/78
== END 2021-09-05 18:05 | DRG 84 ==
LOC: ED 14:28
DX: S06.5X9A Traumatic subdural hemorrhage with loss of consciousness of unspecified duration, initial encounter (principal); J44.9 Chronic obstructive pulmonary disease, unspecified; V89.2XXA Person injured in unspecified motor-vehicle accident, traffic, initial encounter; Z86.73 Personal history of transient ischemic attack (TIA), and cerebral infarction without residual deficits
CPT/HCPCS: J0131

== ENCOUNTER 2021-11-16 14:11 | Emergency (ER) | payer MEDICAID | END 2021-11-16 14:32 | disposition left against medical advice (07) | LOC: ED 14:11 → LWOBS 14:31 → ED 14:32 | DX: Z91.19 Patient's noncompliance with other medical treatment and regimen (principal) ==

== ENCOUNTER 2021-11-18 00:46 | Emergency (ER) | payer MEDICAID ==
[~2021-11-18] VITALS: Ht 172.7 cm; Wt 59.0 kg
[2021-11-18 02:07] LABS: IMMATURE GRANULOCYTES 0.2 % (0.0-5.0); MEAN CELL VOLUME 92.1 fL CALC (80.0-100.0); MEAN CORPUSCULAR HGB 28.5 pG CALC (26.0-32.0); NEUT# 7.55 thou/uL (1.82-7.42); RED BLOOD COUNT 5.19 mill/uL (4.70-6.10); RED CELL DISTRI WIDTH 15.1 % (11.5-15.5)
[2021-11-18 02:10] LABS: HEMATOCRIT 47.8 % (39.0-50.0); HEMOGLOBIN 14.8 g/dl (14.0-18.0)
[2021-11-18] MEDS ORDERED: LORTAB 1010 MG PO (02:19)
[2021-11-18] MEDS ORDERED: CYCLOBENZAPRINE10 MG PO (02:19)
[2021-11-18 02:28] LABS: ALBUMIN 4.1 g/dL (3.2-5.0); ALKALINE PHOSPHATASE 83 u/l (38-126); ANION GAP 12 (6-22 (CALC)); BILIRUBIN, TOTAL 0.5 mg/dL (0.0-1.4); BUN 23 mg/dL (8-23); BUN/CREATININE RATIO 22 (12-20 (CALC)); CHLORIDE 110 mmol/l (95-108); GFR > 60 ML/MIN (>=60 (CALC)); GFR FOR AFR.AMER. > 60 ML/MIN (>=60 (CALC)); POTASSIUM 4.2 mmol/l (3.5-5.1); SGOT/AST 26 u/l (19-48); SODIUM 139 mmol/l (137-146); TOTAL PROTEIN 7.5 g/dL (6.3-8.2)
[2021-11-18 02:29] LABS: CARBON DIOXIDE 21 mmol/l (22-30)
[2021-11-18 02:33] VITALS: BP 132/77
== END 2021-11-18 02:42 | disposition home or self-care (01) ==
LOC: ED 00:46
PROVIDERS: Emergency Medicine
DX: G89.29 Other chronic pain (principal); M54.6 Pain in thoracic spine; J44.9 Chronic obstructive pulmonary disease, unspecified; E78.00 Pure hypercholesterolemia, unspecified; Z86.73 Personal history of transient ischemic attack (TIA), and cerebral infarction without residual deficits; Z87.820 Personal history of traumatic brain injury

== ENCOUNTER 2022-01-24 10:37 | Emergency (ER) | payer MEDICAID ==
[~2022-01-24] VITALS: Ht 172.7 cm; Wt 59.4 kg
[~2022-01-24 10:37] MED LIST changes: +CYCLOBENZAPRINE10 MG PO
[2022-01-24 11:32] LABS: HEMOGLOBIN 13.1 g/dl (14.0-18.0); IMMATURE GRANULOCYTES 0.1 % (0.0-5.0); MEAN CELL VOLUME 93.2 fL CALC (80.0-100.0); MEAN CORPUSCULAR HGB 29.6 pG CALC (26.0-32.0); MEAN CORPUSCULAR HGB CONC 31.8 g/dL CAL (32.0-36.0); NEUT# 6.89 thou/uL (1.82-7.42); RED BLOOD COUNT 4.42 mill/uL (4.70-6.10); RED CELL DISTRI WIDTH 15.8 % (11.5-15.5)
[2022-01-24 11:33] LABS: HEMATOCRIT 41.2 % (39.0-50.0)
[2022-01-24 12:05] LABS: ACT PARTIAL THROMBO TIME 25.6 SECONDS (20.0-32.5); INTERNATIONAL NORMALIZED RATIO 0.9 RATIO (0.7-1.3); PROTHROMBIN TIME 9.3 SECONDS (9.0-12.5)
[2022-01-24 12:08] LABS: ALBUMIN 3.8 g/dL (3.2-5.0); ALKALINE PHOSPHATASE 75 u/l (38-126); BILIRUBIN, TOTAL 0.3 mg/dL (0.0-1.4); BUN 21 mg/dL (8-23); BUN/CREATININE RATIO 19 (12-20 (CALC)); CHLORIDE 112 mmol/l (95-108); CREATININE 1.1 mg/dL (0.7-1.3); GFR > 60 ML/MIN (>=60 (CALC)); GFR FOR AFR.AMER. > 60 ML/MIN (>=60 (CALC)); POTASSIUM 3.9 mmol/l (3.5-5.1); SGOT/AST 22 u/l (19-48); SODIUM 140 mmol/l (137-146); TOTAL PROTEIN 6.7 g/dL (6.3-8.2)
[2022-01-24 12:10] LABS: ANION GAP 6 (6-22 (CALC)); CARBON DIOXIDE 26 mmol/l (22-30)
[2022-01-24] MEDS ORDERED: REGLAN10 MG PO (13:08)
[2022-01-24] MEDS ORDERED: FIORICET PO (13:08)
[2022-01-24 15:35] VITALS: BP 130/70
== END 2022-01-24 15:36 | disposition home or self-care (01) ==
LOC: ED 10:37
PROVIDERS: Internal Medicine
DX: R51.9 Headache, unspecified (principal); I10 Essential (primary) hypertension; J44.9 Chronic obstructive pulmonary disease, unspecified; E78.00 Pure hypercholesterolemia, unspecified; N40.0 Benign prostatic hyperplasia without lower urinary tract symptoms; Z87.820 Personal history of traumatic brain injury

== ENCOUNTER 2022-05-24 14:10 | Emergency (ER) | payer MEDICAID ==
[~2022-05-24] VITALS: Ht 172.7 cm; Wt 58.9 kg
[~2022-05-24 14:10] MED LIST changes: +REGLAN10 MG PO
[2022-05-24 14:23] VITALS: BP 126/69
[2022-05-24 14:37] VITALS: BP 117/67
[2022-05-24 14:46] LABS: HEMATOCRIT 42.9 % (39.0-50.0); HEMOGLOBIN 13.7 g/dl (14.0-18.0); IMMATURE GRANULOCYTES 0.1 % (0.0-5.0); MEAN CORPUSCULAR HGB 31.9 pG CALC (26.0-32.0); MEAN CORPUSCULAR HGB CONC 31.9 g/dL CAL (32.0-36.0); NEUT# 7.09 thou/uL (1.82-7.42); RED BLOOD COUNT 4.3 mill/uL (4.70-6.10)
[2022-05-24 14:51] LABS: MEAN CELL VOLUME 99.8 fL CALC (80.0-100.0)
[2022-05-24 15:00] LABS: ALBUMIN 3.9 g/dL (3.2-5.0); ALKALINE PHOSPHATASE 100 u/l (38-126); ANION GAP 11 (6-22 (CALC)); BILIRUBIN, TOTAL 0.4 mg/dL (0.0-1.4); BUN 19 mg/dL (8-23); BUN/CREATININE RATIO 19 (12-20 (CALC)); CARBON DIOXIDE 26 mmol/l (22-30); CHLORIDE 106 mmol/l (95-108); GFR FOR AFR.AMER. > 60 ML/MIN (>=60 (CALC)); GFR OTHER RACES > 60 ML/MIN (>=60 (CALC)); LIPASE 25 u/l (23-300); POTASSIUM 3.7 mmol/l (3.5-5.1); SGOT/AST 24 u/l (19-48); SODIUM 140 mmol/l (137-146); TOTAL PROTEIN 7.1 g/dL (6.3-8.2)
[2022-05-24 15:01] VITALS: BP 108/62
[2022-05-24 16:00] VITALS: BP 106/59
[2022-05-24 16:13] VITALS: BP 106/59
== END 2022-05-24 16:35 | disposition home or self-care (01) ==
LOC: ED 14:10
PROVIDERS: Family Medicine
DX: R10.11 Right upper quadrant pain (principal); J44.9 Chronic obstructive pulmonary disease, unspecified; F17.200 Nicotine dependence, unspecified, uncomplicated; Z87.820 Personal history of traumatic brain injury
CPT/HCPCS: Q9967

== ENCOUNTER 2022-07-14 10:38 | Emergency (ER) | payer MEDICAID ==
[~2022-07-14] VITALS: Ht 172.7 cm; Wt 56.0 kg
[2022-07-14 10:45] VITALS: BP 133/69
[2022-07-14 12:07] LABS: HEMATOCRIT 42.2 % (39.0-50.0); HEMOGLOBIN 13.3 g/dl (14.0-18.0); IMMATURE GRANULOCYTES 0.1 % (0.0-5.0); MEAN CELL VOLUME 97.9 fL CALC (80.0-100.0); MEAN CORPUSCULAR HGB 30.9 pG CALC (26.0-32.0); MEAN CORPUSCULAR HGB CONC 31.5 g/dL CAL (32.0-36.0); NEUT# 11.29 thou/uL (1.82-7.42); RED BLOOD COUNT 4.31 mill/uL (4.70-6.10); RED CELL DISTRI WIDTH 12.3 % (11.5-15.5)
[2022-07-14 12:27] LABS: ALBUMIN 3.9 g/dL (3.2-5.0); ALKALINE PHOSPHATASE 85 u/l (38-126); ANION GAP 14 (6-22 (CALC)); BILIRUBIN, TOTAL 0.3 mg/dL (0.0-1.4); BUN 12 mg/dL (8-23); BUN/CREATININE RATIO 12 (12-20 (CALC)); CARBON DIOXIDE 24 mmol/l (22-30); CHLORIDE 103 mmol/l (95-108); GFR FOR AFR.AMER. > 60 ML/MIN (>=60 (CALC)); GFR OTHER RACES > 60 ML/MIN (>=60 (CALC)); POTASSIUM 4.3 mmol/l (3.5-5.1); SGOT/AST 32 u/l (19-48); SODIUM 137 mmol/l (137-146); TOTAL PROTEIN 7.1 g/dL (6.3-8.2)
[2022-07-14 12:44] VITALS: BP 121/61
[2022-07-14 14:08] LABS: URINE BILIRUBIN - DIPSTICK NEGATIVE (NEGATIVE); URINE BLOOD DIPSTICK NEGATIVE (NEGATIVE); URINE COLOR YELLOW; URINE GLUCOSE - DIPSTICK NEGATIVE (NEGATIVE); URINE KETONE NEGATIVE (NEGATIVE); URINE LEUK ESTERASE NEGATIVE (NEGATIVE); URINE PH 7.5 (4.5-8.0); URINE PROTEIN - DIPSTICK NEGATIVE (NEG-TRACE); URINE UROBILINOGEN - DIPSTICK 0.2 E.U./dL (0.2)
[2022-07-14 14:10] LABS: URINE NITRITE - DIPSTICK NEGATIVE (Negative)
[2022-07-14] MEDS ORDERED: DULCOLAX5 MG PO (15:51)
[2022-07-14 16:02] VITALS: BP 121/61
== END 2022-07-14 16:16 | disposition home or self-care (01) ==
LOC: ED 10:38
PROVIDERS: Family Medicine
DX: K59.00 Constipation, unspecified (principal); J44.9 Chronic obstructive pulmonary disease, unspecified; E78.00 Pure hypercholesterolemia, unspecified; F17.200 Nicotine dependence, unspecified, uncomplicated; Z86.73 Personal history of transient ischemic attack (TIA), and cerebral infarction without residual deficits; Z87.820 Personal history of traumatic brain injury
CPT/HCPCS: Q9967

== ENCOUNTER 2022-10-14 19:33 | Emergency (ER) | payer MEDICAID ==
[~2022-10-14] VITALS: Ht 172.7 cm; Wt 54.0 kg
[2022-10-14] VITALS (11 sets, daily range): BP systolic 112–148; BP diastolic 51–95
[~2022-10-14 19:33] MED LIST changes: +DULCOLAX5 MG PO
[2022-10-14 21:22] LABS: BASO% 0.5 % (0-3); EOS% 2.1 % (0-8); HEMATOCRIT 42.1 % (39.0-50.0); HEMOGLOBIN 13.9 g/dl (14.0-18.0); IMMATURE GRANULOCYTES 0.2 % (0.0-5.0); MEAN CELL VOLUME 95.2 fL CALC (80.0-100.0); MEAN CORPUSCULAR HGB 31.4 pG CALC (26.0-32.0); MONO% 6.5 % (2-13); NEUT# 8.6 thou/uL (1.82-7.42); NEUT% 67.7 % (42-76); RED BLOOD COUNT 4.42 mill/uL (4.70-6.10); RED CELL DISTRI WIDTH 13.3 % (11.5-15.5)
[2022-10-14 21:24] LABS: URINE BILIRUBIN - DIPSTICK NEGATIVE (NEGATIVE); URINE BLOOD DIPSTICK NEGATIVE (NEGATIVE); URINE COLOR YELLOW; URINE GLUCOSE - DIPSTICK NEGATIVE (NEGATIVE); URINE KETONE NEGATIVE (NEGATIVE); URINE LEUK ESTERASE NEGATIVE (NEGATIVE); URINE PH 6.5 (4.5-8.0); URINE PROTEIN - DIPSTICK NEGATIVE (NEG-TRACE); URINE SPECIFIC GRAVITY 1.025; URINE UROBILINOGEN - DIPSTICK 0.2 E.U./dL (0.2)
[2022-10-14 21:28] LABS: URINE NITRITE - DIPSTICK NEGATIVE (Negative)
[2022-10-14 21:42] LABS: ALKALINE PHOSPHATASE 111 u/l (38-126); AMYLASE 82 u/l (30-110); ANION GAP 10 (6-22 (CALC)); BILIRUBIN, TOTAL 0.3 mg/dL (0.0-1.4); BUN 15 mg/dL (8-23); BUN/CREATININE RATIO 16 (12-20 (CALC)); CARBON DIOXIDE 27 mmol/l (22-30); CHLORIDE 104 mmol/l (95-108); CREATININE 0.9 mg/dL (0.7-1.3); GFR FOR AFR.AMER. > 60 ML/MIN (>=60 (CALC)); GFR OTHER RACES > 60 ML/MIN (>=60 (CALC)); LIPASE 41 u/l (23-300); POTASSIUM 4.4 mmol/l (3.5-5.1); SGOT/AST 28 u/l (19-48); SODIUM 137 mmol/l (137-146); TOTAL PROTEIN 8.2 g/dL (6.3-8.2)
[2022-10-14 21:49] LABS: ALBUMIN 4.8 g/dL (3.2-5.0)
[2022-10-14] MEDS ORDERED: MIRALAX17 GM PO (23:38)
[2022-10-14] MEDS ORDERED: ULTRAM50 MG PO (23:38)
[2022-10-14] MEDS ORDERED: ONDANSETRON4 MG PO (23:40)
== END 2022-10-14 23:55 | disposition home or self-care (01) ==
LOC: ED 19:33
PROVIDERS: Emergency Medicine
DX: K86.1 Other chronic pancreatitis (principal); K59.00 Constipation, unspecified; J44.9 Chronic obstructive pulmonary disease, unspecified; E78.00 Pure hypercholesterolemia, unspecified; Z86.73 Personal history of transient ischemic attack (TIA), and cerebral infarction without residual deficits; Z87.820 Personal history of traumatic brain injury; F17.200 Nicotine dependence, unspecified, uncomplicated

== ENCOUNTER 2022-12-27 06:21 | Emergency (ER) | payer MEDICAID ==
[2022-12-27] VITALS (9 sets, daily range): BP systolic 101–115; BP diastolic 57–66
[~2022-12-27] VITALS: Ht 172.7 cm; Wt 55.0 kg
[~2022-12-27 06:21] MED LIST changes: +MIRALAX17 GM PO; +ONDANSETRON4 MG PO; +ULTRAM50 MG PO
[2022-12-27 07:02] LABS: BASO% 0.4 % (0-3); EOS% 0.9 % (0-8); HEMATOCRIT 39.9 % (39.0-50.0); HEMOGLOBIN 12.3 g/dl (14.0-18.0); IMMATURE GRANULOCYTES 0.2 % (0.0-5.0); LYMPH% 16.4 % (15-41); MEAN CELL VOLUME 92.6 fL CALC (80.0-100.0); MEAN CORPUSCULAR HGB 28.5 pG CALC (26.0-32.0); MEAN CORPUSCULAR HGB CONC 30.8 g/dL CAL (32.0-36.0); MONO% 8.4 % (2-13); NEUT# 8.98 thou/uL (1.82-7.42); NEUT% 73.7 % (42-76); RED BLOOD COUNT 4.31 mill/uL (4.70-6.10); RED CELL DISTRI WIDTH 13.8 % (11.5-15.5)
[2022-12-27 07:11] LABS: ALBUMIN 4.1 g/dL (3.2-5.0); ALKALINE PHOSPHATASE 84 u/l (38-126); ANION GAP 12 (6-22 (CALC)); BILIRUBIN, TOTAL 0.2 mg/dL (0.2-1.3); BUN 19 mg/dL (8-23); BUN/CREATININE RATIO 16 (12-20 (CALC)); CARBON DIOXIDE 22 mmol/l (22-30); CHLORIDE 108 mmol/l (95-108); CREATININE 1.2 mg/dL (0.7-1.3); GFR FOR AFR.AMER. > 60 ML/MIN (>=60 (CALC)); GFR OTHER RACES > 60 ML/MIN (>=60 (CALC)); POTASSIUM 4.3 mmol/l (3.5-5.1); SGOT/AST 24 u/l (19-48); SODIUM 137 mmol/l (137-146); TOTAL PROTEIN 6.9 g/dL (6.3-8.2)
[2022-12-27] MEDS ORDERED: CLINDAMYCIN HY300 MG PO (09:31)
== END 2022-12-27 10:06 | disposition home or self-care (01) ==
LOC: ED 06:21
PROVIDERS: Emergency Medicine
DX: R22.0 Localized swelling, mass and lump, head (principal); J44.9 Chronic obstructive pulmonary disease, unspecified; E78.00 Pure hypercholesterolemia, unspecified; N40.0 Benign prostatic hyperplasia without lower urinary tract symptoms; F17.290 Nicotine dependence, other tobacco product, uncomplicated; Z86.73 Personal history of transient ischemic attack (TIA), and cerebral infarction without residual deficits; Z87.820 Personal history of traumatic brain injury
CPT/HCPCS: Q9967

== ENCOUNTER 2023-01-23 15:11 | Observation (INO) | payer MEDICAID ==
[~2023-01-23] VITALS: Ht 172.7 cm; Wt 54.0 kg
[2023-01-23] VITALS (12 sets, daily range): BP systolic 103–139; BP diastolic 46–83
[~2023-01-23 15:11] MED LIST changes: +CLINDAMYCIN HY300 MG PO
[2023-01-23 16:14] LABS: BASO% 0.6 % (0-3); EOS% 0.7 % (0-8); HEMATOCRIT 45.2 % (39.0-50.0); LYMPH% 21.9 % (15-41); MEAN CELL VOLUME 89.9 fL CALC (80.0-100.0); MEAN CORPUSCULAR HGB 28.4 pG CALC (26.0-32.0); MEAN CORPUSCULAR HGB CONC 31.6 g/dL CAL (32.0-36.0); MONO% 7.4 % (2-13); NEUT# 6.1 thou/uL (1.82-7.42); NEUT% 69.4 % (42-76); RED BLOOD COUNT 5.03 mill/uL (4.70-6.10); RED CELL DISTRI WIDTH 13.8 % (11.5-15.5)
[2023-01-23 16:18] LABS: HEMOGLOBIN 14.3 g/dl (14.0-18.0)
[2023-01-23 16:28] LABS: ALBUMIN 4.6 g/dL (3.2-5.0); ALKALINE PHOSPHATASE 111 u/l (38-126); ANION GAP 16 (6-22 (CALC)); BILIRUBIN, TOTAL 0.4 mg/dL (0.2-1.3); BUN 22 mg/dL (8-23); BUN/CREATININE RATIO 25 (12-20 (CALC)); CARBON DIOXIDE 23 mmol/l (22-30); CHLORIDE 105 mmol/l (95-108); CREATININE 0.9 mg/dL (0.7-1.3); GFR FOR AFR.AMER. > 60 ML/MIN (>=60 (CALC)); GFR OTHER RACES > 60 ML/MIN (>=60 (CALC)); POTASSIUM 4.2 mmol/l (3.5-5.1); SGOT/AST 36 u/l (19-48); SODIUM 139 mmol/l (137-146); TOTAL PROTEIN 8.1 g/dL (6.3-8.2)
[2023-01-24] VITALS (8 sets, daily range): BP systolic 102–113; BP diastolic 44–54
[2023-01-24 05:29] LABS: BASO% 0.5 % (0-3); EOS% 1.5 % (0-8); IMMATURE GRANULOCYTES 0.1 % (0.0-5.0); LYMPH% 27.5 % (15-41); MEAN CELL VOLUME 90.3 fL CALC (80.0-100.0); MEAN CORPUSCULAR HGB 28.6 pG CALC (26.0-32.0); MEAN CORPUSCULAR HGB CONC 31.6 g/dL CAL (32.0-36.0); MONO% 7.4 % (2-13); NEUT# 5.75 thou/uL (1.82-7.42); RED BLOOD COUNT 4.13 mill/uL (4.70-6.10); RED CELL DISTRI WIDTH 13.9 % (11.5-15.5)
[2023-01-24 05:34] LABS: HEMATOCRIT 37.3 % (39.0-50.0); HEMOGLOBIN 11.8 g/dl (14.0-18.0)
[2023-01-24 05:44] LABS: ALKALINE PHOSPHATASE 72 u/l (38-126); ANION GAP 9 (6-22 (CALC)); BUN 21 mg/dL (8-23); BUN/CREATININE RATIO 27 (12-20 (CALC)); CARBON DIOXIDE 24 mmol/l (22-30); CHLORIDE 108 mmol/l (95-108); CREATININE 0.8 mg/dL (0.7-1.3); GFR FOR AFR.AMER. > 60 ML/MIN (>=60 (CALC)); GFR OTHER RACES > 60 ML/MIN (>=60 (CALC)); POTASSIUM 3.7 mmol/l (3.5-5.1); SGOT/AST 23 u/l (19-48); SODIUM 137 mmol/l (137-146)
[2023-01-24 05:59] LABS: BILIRUBIN, TOTAL 0.1 mg/dL (0.2-1.3)
[2023-01-24 06:00] LABS: ALBUMIN 3.4 g/dL (3.2-5.0)
[2023-01-25] VITALS (8 sets, daily range): BP systolic 110–125; BP diastolic 49–75
[2023-01-25 05:16] LABS: BASO% 0.3 % (0-3); HEMATOCRIT 37.6 % (39.0-50.0); IMMATURE GRANULOCYTES 0.2 % (0.0-5.0); MEAN CORPUSCULAR HGB 28.7 pG CALC (26.0-32.0); MEAN CORPUSCULAR HGB CONC 31.9 g/dL CAL (32.0-36.0); MONO% 2.1 % (2-13); NEUT# 5.31 thou/uL (1.82-7.42); NEUT% 81.4 % (42-76); RED BLOOD COUNT 4.18 mill/uL (4.70-6.10); RED CELL DISTRI WIDTH 13.2 % (11.5-15.5)
[2023-01-25 05:32] LABS: ALBUMIN 3.2 g/dL (3.2-5.0); ALKALINE PHOSPHATASE 78 u/l (38-126); BILIRUBIN, TOTAL 0.1 mg/dL (0.2-1.3); BUN 20 mg/dL (8-23); BUN/CREATININE RATIO 29 (12-20 (CALC)); CARBON DIOXIDE 20 mmol/l (22-30); CHLORIDE 108 mmol/l (95-108); CREATININE 0.7 mg/dL (0.7-1.3); GFR FOR AFR.AMER. > 60 ML/MIN (>=60 (CALC)); GFR OTHER RACES > 60 ML/MIN (>=60 (CALC)); SGOT/AST 26 u/l (19-48); SODIUM 134 mmol/l (137-146); TOTAL PROTEIN 5.8 g/dL (6.3-8.2)
[2023-01-25 05:45] LABS: ANION GAP 11 (6-22 (CALC)); POTASSIUM 4.6 mmol/l (3.5-5.1)
[2023-01-26 05:05] VITALS: BP 123/61
[2023-01-26 05:43] LABS: BASO% 0.2 % (0-3); HEMATOCRIT 37.8 % (39.0-50.0); IMMATURE GRANULOCYTES 0.2 % (0.0-5.0); LYMPH% 9.6 % (15-41); MEAN CELL VOLUME 89.6 fL CALC (80.0-100.0); MEAN CORPUSCULAR HGB 28.4 pG CALC (26.0-32.0); MEAN CORPUSCULAR HGB CONC 31.7 g/dL CAL (32.0-36.0); MONO% 3.7 % (2-13); NEUT# 10.39 thou/uL (1.82-7.42); NEUT% 86.3 % (42-76); RED BLOOD COUNT 4.22 mill/uL (4.70-6.10); RED CELL DISTRI WIDTH 13.4 % (11.5-15.5)
[2023-01-26 06:18] LABS: ALBUMIN 3.3 g/dL (3.2-5.0); ALKALINE PHOSPHATASE 70 u/l (38-126); ANION GAP 9 (6-22 (CALC)); BUN 18 mg/dL (8-23); BUN/CREATININE RATIO 26 (12-20 (CALC)); CARBON DIOXIDE 21 mmol/l (22-30); CHLORIDE 108 mmol/l (95-108); CREATININE 0.7 mg/dL (0.7-1.3); GFR FOR AFR.AMER. > 60 ML/MIN (>=60 (CALC)); GFR OTHER RACES > 60 ML/MIN (>=60 (CALC)); POTASSIUM 4.2 mmol/l (3.5-5.1); SGOT/AST 25 u/l (19-48); SODIUM 134 mmol/l (137-146); TOTAL PROTEIN 5.7 g/dL (6.3-8.2)
[2023-01-26 07:17] VITALS: BP 112/50
[2023-01-26] MEDS ORDERED: MOTRIN400 MG/TAB PO (11:11)
[2023-01-26] MEDS ORDERED: KENALOG15 GM/TUBE EX (11:12)
[2023-01-26] MEDS ORDERED: METHOCARBAMOL500 MG PO (11:12)
[2023-01-26] MEDS ORDERED: ALENDRONATE SOD70 MG PO (11:14)
[2023-01-26] MEDS ORDERED: FERROUS SULFAT325 MG PO (11:14)
[2023-01-26] MEDS ORDERED: GABAPENTIN300 M2 PO (11:15)
[2023-01-26] MEDS ORDERED: LIPITOR20 M1 PO (11:16)
[2023-01-26] MEDS ORDERED: VITAMIN D3 1.251 CAP (11:17)
[2023-01-26] MEDS ORDERED: MEDDOSEPAK PO (11:19)
[2023-01-26 12:15] VITALS: BP 120/54
== END 2023-01-26 13:45 | disposition home or self-care (01) ==
LOC: ED 15:11 → ED-I 17:50 → ED 18:50 → MS2 18:51
PROVIDERS: Family Medicine; ADMIT Internal Medicine; ATTEND Internal Medicine
DX: R62.7 Adult failure to thrive (principal); R53.1 Weakness; E86.0 Dehydration; J44.9 Chronic obstructive pulmonary disease, unspecified; E78.00 Pure hypercholesterolemia, unspecified; M15.9 Polyosteoarthritis, unspecified; G89.4 Chronic pain syndrome; Z68.23 Body mass index [BMI] 23.0-23.9, adult; Z86.73 Personal history of transient ischemic attack (TIA), and cerebral infarction without residual deficits; Z87.820 Personal history of traumatic brain injury; Z20.822 Contact with and (suspected) exposure to COVID-19
CPT/HCPCS: G0378

== ENCOUNTER 2023-02-15 11:19 | Observation (INO) | payer MEDICAID ==
[~2023-02-15] VITALS: Ht 172.7 cm; Wt 48.0 kg
[~2023-02-15 11:19] MED LIST changes: +FERROUS SULFAT325 MG PO; +KENALOG15 GM/TUBE EX; +METHOCARBAMOL500 MG PO; +VITAMIN D3 1.251 CAP
[2023-02-15] MEDS ORDERED: OXYCODONE15 MG PO (11:46)
[2023-02-15] MEDS ORDERED: DICYCLOMINE HCL20 MG PO (11:48)
[2023-02-15] MEDS ORDERED: HYDROXYZ HCL25 MG PO (11:48)
[2023-02-15] MEDS ORDERED: FERROUS SULF325 M3 PO (11:49)
[2023-02-15] MEDS ORDERED: SYMBICORT1 AE1 IN (11:49)
[2023-02-15 12:20] LABS: BASO% 0.6 % (0-3); EOS% 0.6 % (0-8); HEMATOCRIT 45.3 % (39.0-50.0); HEMOGLOBIN 14.4 g/dl (14.0-18.0); IMMATURE GRANULOCYTES 0.1 % (0.0-5.0); LYMPH% 23.8 % (15-41); MEAN CORPUSCULAR HGB 28.9 pG CALC (26.0-32.0); MEAN CORPUSCULAR HGB CONC 31.8 g/dL CAL (32.0-36.0); MONO% 6.2 % (2-13); NEUT# 5.72 thou/uL (1.82-7.42); NEUT% 68.7 % (42-76); RED BLOOD COUNT 4.98 mill/uL (4.70-6.10); RED CELL DISTRI WIDTH 14.5 % (11.5-15.5)
[2023-02-15 12:30] LABS: ALBUMIN 4.2 g/dL (3.2-5.0); ALKALINE PHOSPHATASE 73 u/l (38-126); ANION GAP 10 (6-22 (CALC)); BILIRUBIN, TOTAL 0.3 mg/dL (0.2-1.3); BUN 15 mg/dL (8-23); BUN/CREATININE RATIO 16 (12-20 (CALC)); CARBON DIOXIDE 25 mmol/l (22-30); CHLORIDE 107 mmol/l (95-108); CREATININE 0.9 mg/dL (0.7-1.3); GFR FOR AFR.AMER. > 60 ML/MIN (>=60 (CALC)); GFR OTHER RACES > 60 ML/MIN (>=60 (CALC)); POTASSIUM 3.9 mmol/l (3.5-5.1); SGOT/AST 25 u/l (19-48); SODIUM 138 mmol/l (137-146); TOTAL PROTEIN 6.9 g/dL (6.3-8.2)
[2023-02-15 15:41] VITALS: BP 125/62
[2023-02-15 19:53] VITALS: BP 121/55
[2023-02-15 23:52] VITALS: BP 119/61
[2023-02-16 03:54] VITALS: BP 101/46
[2023-02-16 07:26] VITALS: BP 152/72
[2023-02-16 11:10] VITALS: BP 117/68
[2023-02-16 11:32] LABS: URINE BILIRUBIN - DIPSTICK NEGATIVE (NEGATIVE); URINE BLOOD DIPSTICK NEGATIVE (NEGATIVE); URINE COLOR YELLOW; URINE GLUCOSE - DIPSTICK NEGATIVE (NEGATIVE); URINE KETONE NEGATIVE (NEGATIVE); URINE LEUK ESTERASE NEGATIVE (NEGATIVE); URINE NITRITE - DIPSTICK NEGATIVE (Negative); URINE PROTEIN - DIPSTICK NEGATIVE (NEG-TRACE); URINE UROBILINOGEN - DIPSTICK 0.2 E.U./dL (0.2)
[2023-02-16 15:04] VITALS: BP 122/55
[2023-02-16 20:26] VITALS: BP 102/48
[2023-02-16 23:49] VITALS: BP 107/46
[2023-02-17 04:27] VITALS: BP 102/41
[2023-02-17 06:17] LABS: BASO% 0.5 % (0-3); EOS% 1.3 % (0-8); IMMATURE GRANULOCYTES 0.5 % (0.0-5.0); LYMPH% 32.9 % (15-41); MEAN CELL VOLUME 92.4 fL CALC (80.0-100.0); MEAN CORPUSCULAR HGB CONC 31.4 g/dL CAL (32.0-36.0); MONO% 6.9 % (2-13); NEUT# 5.1 thou/uL (1.82-7.42); NEUT% 57.9 % (42-76); RED BLOOD COUNT 4.21 mill/uL (4.70-6.10); RED CELL DISTRI WIDTH 14.5 % (11.5-15.5)
[2023-02-17 06:20] LABS: HEMATOCRIT 38.9 % (39.0-50.0); HEMOGLOBIN 12.2 g/dl (14.0-18.0)
[2023-02-17 06:38] LABS: ALBUMIN 3.3 g/dL (3.2-5.0); ALKALINE PHOSPHATASE 53 u/l (38-126); ANION GAP 7 (6-22 (CALC)); BUN 17 mg/dL (8-23); BUN/CREATININE RATIO 15 (12-20 (CALC)); CARBON DIOXIDE 24 mmol/l (22-30); CHLORIDE 109 mmol/l (95-108); CREATININE 1.2 mg/dL (0.7-1.3); GFR FOR AFR.AMER. > 60 ML/MIN (>=60 (CALC)); GFR OTHER RACES > 60 ML/MIN (>=60 (CALC)); SGOT/AST 21 u/l (19-48); SODIUM 135 mmol/l (137-146); TOTAL PROTEIN 5.7 g/dL (6.3-8.2)
[2023-02-17 07:18] VITALS: BP 109/40
[2023-02-17 10:49] VITALS: BP 114/52
[2023-02-17 11:19] VITALS: BP 114/52
== END 2023-02-17 13:45 | disposition home or self-care (01) ==
LOC: ED 11:19 → ED-I 13:21 → ED 13:36 → MS2 13:37
PROVIDERS: Family Medicine; Nurse Practitioner Family; ADMIT Internal Medicine; ATTEND Internal Medicine
DX: R62.7 Adult failure to thrive (principal); E86.0 Dehydration; R53.1 Weakness; R63.4 Abnormal weight loss; J44.9 Chronic obstructive pulmonary disease, unspecified; E78.00 Pure hypercholesterolemia, unspecified; M15.9 Polyosteoarthritis, unspecified; Z86.73 Personal history of transient ischemic attack (TIA), and cerebral infarction without residual deficits; Z87.820 Personal history of traumatic brain injury
CPT/HCPCS: G0378

== ENCOUNTER 2023-03-21 12:47 | Observation (INO) | payer MEDICAID ==
[2023-03-21] VITALS (22 sets, daily range): BP systolic 107–124; BP diastolic 48–74
[~2023-03-21] VITALS: Ht 172.7 cm; Wt 49.0 kg
[~2023-03-21 12:47] MED LIST changes: +DICYCLOMINE HCL20 MG PO; +FERROUS SULF325 M3 PO; +HYDROXYZ HCL25 MG PO; +OXYCODONE15 MG PO
[2023-03-21 13:34] LABS: BASO% 0.3 % (0-3); EOS% 0.4 % (0-8); IMMATURE GRANULOCYTES 0.2 % (0.0-5.0); MEAN CELL VOLUME 90.3 fL CALC (80.0-100.0); MEAN CORPUSCULAR HGB 28.3 pG CALC (26.0-32.0); MEAN CORPUSCULAR HGB CONC 31.4 g/dL CAL (32.0-36.0); MONO% 9.2 % (2-13); NEUT# 8.25 thou/uL (1.82-7.42); NEUT% 63.9 % (42-76); RED BLOOD COUNT 5.26 mill/uL (4.70-6.10); RED CELL DISTRI WIDTH 14.1 % (11.5-15.5)
[2023-03-21 13:44] LABS: ALKALINE PHOSPHATASE 60 u/l (38-126); ANION GAP 16 (6-22 (CALC)); BUN 24 mg/dL (8-23); BUN/CREATININE RATIO 27 (12-20 (CALC)); CARBON DIOXIDE 20 mmol/l (22-30); CHLORIDE 106 mmol/l (95-108); CREATININE 0.9 mg/dL (0.7-1.3); GFR FOR AFR.AMER. > 60 ML/MIN (>=60 (CALC)); GFR OTHER RACES > 60 ML/MIN (>=60 (CALC)); POTASSIUM 4.1 mmol/l (3.5-5.1); SGOT/AST 25 u/l (19-48); SODIUM 138 mmol/l (137-146)
[2023-03-21 13:51] LABS: ALBUMIN 4.7 g/dL (3.2-5.0); BILIRUBIN, TOTAL 0.5 mg/dL (0.2-1.3); HEMATOCRIT 47.5 % (39.0-50.0); HEMOGLOBIN 14.9 g/dl (14.0-18.0); TOTAL PROTEIN 8.1 g/dL (6.3-8.2)
[2023-03-21 18:02] LABS: URINE BILIRUBIN - DIPSTICK NEGATIVE (NEGATIVE); URINE BLOOD DIPSTICK NEGATIVE (NEGATIVE); URINE COLOR YELLOW; URINE GLUCOSE - DIPSTICK NEGATIVE (NEGATIVE); URINE KETONE NEGATIVE (NEGATIVE); URINE LEUK ESTERASE NEGATIVE (NEGATIVE); URINE NITRITE - DIPSTICK NEGATIVE (Negative); URINE PROTEIN - DIPSTICK NEGATIVE (NEG-TRACE); URINE SPECIFIC GRAVITY 1.015; URINE UROBILINOGEN - DIPSTICK 0.2 E.U./dL (0.2)
[2023-03-22] VITALS (8 sets, daily range): BP systolic 96–115; BP diastolic 45–57
[2023-03-22 06:31] LABS: MEAN CELL VOLUME 89.2 fL CALC (80.0-100.0); MEAN CORPUSCULAR HGB 28.9 pG CALC (26.0-32.0); MEAN CORPUSCULAR HGB CONC 32.4 g/dL CAL (32.0-36.0); RED BLOOD COUNT 4.18 mill/uL (4.70-6.10)
[2023-03-22 06:33] LABS: HEMATOCRIT 37.3 % (39.0-50.0); HEMOGLOBIN 12.1 g/dl (14.0-18.0)
[2023-03-22 06:49] LABS: ALKALINE PHOSPHATASE 45 u/l (38-126); ANION GAP 14 (6-22 (CALC)); BILIRUBIN, TOTAL 0.3 mg/dL (0.2-1.3); BUN 30 mg/dL (8-23); BUN/CREATININE RATIO 35 (12-20 (CALC)); CARBON DIOXIDE 18 mmol/l (22-30); CHLORIDE 105 mmol/l (95-108); CREATININE 0.9 mg/dL (0.7-1.3); GFR FOR AFR.AMER. > 60 ML/MIN (>=60 (CALC)); GFR OTHER RACES > 60 ML/MIN (>=60 (CALC)); MAGNESIUM 1.8 mg/dL (1.6-2.3); POTASSIUM 4.1 mmol/l (3.5-5.1); SGOT/AST 16 u/l (19-48); SODIUM 133 mmol/l (137-146)
[2023-03-22 06:51] LABS: ALBUMIN 3.6 g/dL (3.2-5.0)
[2023-03-23] VITALS (8 sets, daily range): BP systolic 98–117; BP diastolic 35–53
[2023-03-24] VITALS (7 sets, daily range): BP systolic 91–116; BP diastolic 35–52
[2023-03-24 07:04] LABS: BASO% 0.6 % (0-3); EOS% 1.9 % (0-8); HEMATOCRIT 37.1 % (39.0-50.0); HEMOGLOBIN 11.6 g/dl (14.0-18.0); IMMATURE GRANULOCYTES 0.2 % (0.0-5.0); LYMPH% 26.8 % (15-41); MEAN CELL VOLUME 92.5 fL CALC (80.0-100.0); MEAN CORPUSCULAR HGB 28.9 pG CALC (26.0-32.0); MEAN CORPUSCULAR HGB CONC 31.3 g/dL CAL (32.0-36.0); MONO% 9.7 % (2-13); NEUT# 7.2 thou/uL (1.82-7.42); NEUT% 60.8 % (42-76); RED BLOOD COUNT 4.01 mill/uL (4.70-6.10); RED CELL DISTRI WIDTH 14.3 % (11.5-15.5)
[2023-03-24 07:32] LABS: ALBUMIN 3.9 g/dL (3.2-5.0); ALKALINE PHOSPHATASE 57 u/l (38-126); BILIRUBIN, TOTAL 0.3 mg/dL (0.2-1.3); BUN 23 mg/dL (8-23); BUN/CREATININE RATIO 27 (12-20 (CALC)); CHLORIDE 107 mmol/l (95-108); CREATININE 0.9 mg/dL (0.7-1.3); GFR FOR AFR.AMER. > 60 ML/MIN (>=60 (CALC)); GFR OTHER RACES > 60 ML/MIN (>=60 (CALC)); POTASSIUM 4.8 mmol/l (3.5-5.1); SODIUM 136 mmol/l (137-146); TOTAL PROTEIN 6.6 g/dL (6.3-8.2)
[2023-03-24 07:38] LABS: ANION GAP 12 (6-22 (CALC)); CARBON DIOXIDE 22 mmol/l (22-30); SGOT/AST 30 u/l (19-48)
[2023-03-24] MEDS ORDERED: MIRTAZAPINE15 MG PO (16:09)
[2023-03-24] MEDS ORDERED: OXYCODONE15 MG PO (16:21)
== END 2023-03-24 17:44 | disposition home or self-care (01) ==
LOC: ED 12:47 → MS2 18:05
PROVIDERS: Family Medicine; Nurse Practitioner Family; ADMIT Internal Medicine; ATTEND Internal Medicine
DX: R62.7 Adult failure to thrive (principal); Z68.1 Body mass index [BMI] 19.9 or less, adult; E86.0 Dehydration; J44.9 Chronic obstructive pulmonary disease, unspecified; E78.00 Pure hypercholesterolemia, unspecified; M15.9 Polyosteoarthritis, unspecified; Z91.81 History of falling; N40.0 Benign prostatic hyperplasia without lower urinary tract symptoms; Z86.73 Personal history of transient ischemic attack (TIA), and cerebral infarction without residual deficits; Z60.2 Problems related to living alone; Z87.820 Personal history of traumatic brain injury; Z20.822 Contact with and (suspected) exposure to COVID-19
CPT/HCPCS: G0378; J1650; S0164

== ENCOUNTER 2023-09-21 01:07 | Emergency (ER) | payer MEDICAID ==
[~2023-09-21] VITALS: Ht 172.7 cm; Wt 52.0 kg
[~2023-09-21 01:07] MED LIST changes: +AMITRIPTYLINE H50 MG PO; +CVS FLUTICASON50 MC1; +IMODIUM2 MG PO; +METOPROL TAR25 MG PO; +MIRTAZAPINE15 MG PO; +OMEPRAZOLE DR40 MG PO
[2023-09-21 01:14] VITALS: BP 118/81
[2023-09-21 01:31] VITALS: BP 109/57
[2023-09-21 01:45] VITALS: BP 125/63
== END 2023-09-21 01:50 | disposition home or self-care (01) ==
LOC: ED 01:07
DX: L76.32 Postprocedural hematoma of skin and subcutaneous tissue following other procedure (principal); J44.9 Chronic obstructive pulmonary disease, unspecified; E78.00 Pure hypercholesterolemia, unspecified; Y83.8 Other surgical procedures as the cause of abnormal reaction of the patient, or of later complication, without mention of misadventure at the time of the procedure; Z86.73 Personal history of transient ischemic attack (TIA), and cerebral infarction without residual deficits; Z87.820 Personal history of traumatic brain injury

== ENCOUNTER 2023-10-10 09:52 | Emergency (ER) | payer MEDICAID ==
[2023-10-10] VITALS (8 sets, daily range): BP systolic 87–110; BP diastolic 47–56
[~2023-10-10] VITALS: Ht 172.7 cm; Wt 49.8 kg
[2023-10-10 10:35] LABS: URINE BLOOD DIPSTICK Negative (NEGATIVE); URINE GLUCOSE - DIPSTICK Negative (NEGATIVE); URINE KETONE Trace mg/dL (NEGATIVE); URINE LEUK ESTERASE Negative (NEGATIVE); URINE NITRITE - DIPSTICK Negative (Negative); URINE PROTEIN - DIPSTICK 30 mg/dL (NEG-TRACE); URINE SPECIFIC GRAVITY >=1.030; URINE UROBILINOGEN - DIPSTICK 0.2 E.U./dL (0.2)
[2023-10-10 10:44] LABS: URINE COLOR Yellow
[2023-10-10 10:48] LABS: URINE HYALINE CAST FEW lpf (NONE-RARE)
[2023-10-10] MEDS ORDERED: CVS MUCUS EXT1200 MG PO (12:08)
[2023-10-10] MEDS ORDERED: ZITHROMAX250 MG PO (12:08)
== END 2023-10-10 12:55 | disposition home or self-care (01) ==
LOC: ED 09:52
PROVIDERS: Emergency Medicine
DX: J40 Bronchitis, not specified as acute or chronic (principal); J44.9 Chronic obstructive pulmonary disease, unspecified; Z20.822 Contact with and (suspected) exposure to COVID-19

== ENCOUNTER 2024-03-19 12:59 | Emergency (ER) | payer MEDICAID ==
[~2024-03-19] VITALS: Ht 172.7 cm; Wt 53.5 kg
[~2024-03-19 12:59] MED LIST changes: +CVS MUCUS EXT1200 MG PO; +PERCOCET 5/325M1 TAB PO; +ZITHROMAX250 MG PO
[2024-03-19 14:17] VITALS: BP 119/74
== END 2024-03-19 14:25 | disposition home or self-care (01) ==
LOC: ED 12:59
DX: S51.012D Laceration without foreign body of left elbow, subsequent encounter (principal); J44.9 Chronic obstructive pulmonary disease, unspecified; E78.5 Hyperlipidemia, unspecified; X58.XXXD Exposure to other specified factors, subsequent encounter; Z86.73 Personal history of transient ischemic attack (TIA), and cerebral infarction without residual deficits; Z87.820 Personal history of traumatic brain injury

== ENCOUNTER 2024-03-20 11:14 | Emergency (ER) | payer MEDICAID ==
[~2024-03-20] VITALS: Ht 172.7 cm; Wt 53.5 kg
[2024-03-20 12:23] VITALS: BP 117/71
== END 2024-03-20 12:30 | disposition home or self-care (01) ==
LOC: ED 11:14
DX: T81.33XA Disruption of traumatic injury wound repair, initial encounter (principal); Y83.8 Other surgical procedures as the cause of abnormal reaction of the patient, or of later complication, without mention of misadventure at the time of the procedure; J44.9 Chronic obstructive pulmonary disease, unspecified; Z72.0 Tobacco use

== ENCOUNTER 2024-03-22 18:07 | Emergency (ER) | payer MEDICAID ==
[2024-03-22 18:30] VITALS: BP 111/59
[2024-03-22 21:24] VITALS: BP 199/99
[2024-03-22 21:26] VITALS: BP 191/87
[2024-03-22 21:30] VITALS: BP 183/86
[2024-03-22 21:52] VITALS: BP 152/80
== END 2024-03-22 18:40 | disposition left against medical advice (07) ==
LOC: ED 18:07
DX: Z53.21 Procedure and treatment not carried out due to patient leaving prior to being seen by health care provider (principal)

== ENCOUNTER 2024-05-08 11:17 | Inpatient (IN) | payer MEDICARE, MEDICAID ==
[2024-05-08] VITALS (18 sets, daily range): BP systolic 115–152; BP diastolic 55–78
[~2024-05-08] VITALS: Ht 172.7 cm; Wt 52.1 kg
[2024-05-08] MEDS ORDERED: VANCOMYCIN HCL 1 GM in SODIUM CHLORIDE 0.9% 250 ML IV ONE (12:05)
[2024-05-08] MEDS ORDERED: HYDROmorphone HCL 2 MG/AMP IV ONE ×2 (12:05→17:20)
[2024-05-08] MEDS ORDERED: SODIUM CHLORIDE 0.9% 500 ML IV ONE (12:10)
[2024-05-08 12:24] LABS: BASO% 0.6 % (0-3); EOS% 2.6 % (0-8); HEMATOCRIT 36.2 % (39.0-50.0); HEMOGLOBIN 11.2 g/dl (14.0-18.0); IMMATURE GRANULOCYTES 0.1 % (0.0-5.0); LYMPH% 20.7 % (15-41); MEAN CELL VOLUME 101.1 fL CALC (80.0-100.0); MEAN CORPUSCULAR HGB 31.3 pG CALC (26.0-32.0); MEAN CORPUSCULAR HGB CONC 30.9 g/dL CAL (32.0-36.0); MONO% 9.7 % (2-13); NEUT# 6.2 thou/uL (1.82-7.42); NEUT% 66.3 % (42-76); RED BLOOD COUNT 3.58 mill/uL (4.70-6.10); RED CELL DISTRI WIDTH 13.2 % (11.5-15.5)
[2024-05-08 12:36] LABS: ALBUMIN 4.2 g/dL (3.2-5.0); BILIRUBIN, TOTAL 0.5 mg/dL (0.2-1.3); CREATININE 1.1 mg/dL (0.7-1.3); POTASSIUM 3.8 mmol/l (3.5-5.1); TOTAL PROTEIN 7.2 g/dL (6.3-8.2)
[2024-05-08] MEDS ORDERED: SODIUM CHLORIDE 0.9% 1,000 ML IV PRN (14:10)
[2024-05-08] MEDS ORDERED: ACETAMINOPHEN 325 MG/TAB PO PRN (14:10)
[2024-05-08] MEDS ORDERED: MAGNESIUM HYDROXIDE 30 ML UDC PO PRN (14:10)
[2024-05-08] MEDS ORDERED: DiphenhydrAMINE HCL 50 MG/ML SDV IV PRN (14:15)
[2024-05-08] MEDS ORDERED: IPRATROPIUM-Albuterol 0.5MG-2.5MG/3 ML NEB PRN (14:15)
[2024-05-08] MEDS ORDERED: Zaleplon 5 MG/CAP PO PRN (14:15)
[2024-05-08] MEDS ORDERED: HYDROmorphone HCL 2 MG/AMP IV PRN (14:15)
[2024-05-08] MEDS ORDERED: traMADol HCL 50 MG/TAB PO PRN (14:15)
[2024-05-08] MEDS ORDERED: IBUPROFEN 600 MG/TAB PO PRN (14:20)
[2024-05-08] MEDS ORDERED: FUROSEMIDE 40 MG/4 ML SDV IV ONE (17:20)
[2024-05-08] MEDS ORDERED: HYDROmorphone HCL 2 MG/AMP IV SCH (18:15)
[2024-05-08] MEDS ORDERED: ENOXAPARIN SODIUM 40 MG/0.4 ML SYR SC SCH (21:00)
[2024-05-08] MEDS ORDERED: ATORVASTATIN CALCIUM 10 MG/TAB PO SCH (21:00)
[2024-05-08] MEDS ORDERED: FLUTICASONE/SALMETEROL 250 MCG/50 MCG PER DOSE INH IN SCH (21:00)
[2024-05-09] VITALS (8 sets, daily range): BP systolic 107–127; BP diastolic 45–61
[2024-05-09 04:56] LABS: BASO% 0.7 % (0-3); EOS% 1.9 % (0-8); HEMATOCRIT 35.5 % (39.0-50.0); HEMOGLOBIN 11.3 g/dl (14.0-18.0); IMMATURE GRANULOCYTES 0.1 % (0.0-5.0); LYMPH% 16.7 % (15-41); MEAN CELL VOLUME 100.6 fL CALC (80.0-100.0); MEAN CORPUSCULAR HGB CONC 31.8 g/dL CAL (32.0-36.0); MONO% 9.5 % (2-13); NEUT# 6.25 thou/uL (1.82-7.42); NEUT% 71.1 % (42-76); RED BLOOD COUNT 3.53 mill/uL (4.70-6.10); RED CELL DISTRI WIDTH 13.1 % (11.5-15.5)
[2024-05-09 05:17] LABS: BILIRUBIN, TOTAL 0.3 mg/dL (0.2-1.3); C-REACTIVE PROTEIN 3.8 mg/dL (0-0.9); CHOLESTEROL HDL RATIO 2.1 (<4.4 (CALC)); CREATININE 0.8 mg/dL (0.7-1.3); MAGNESIUM 1.9 mg/dL (1.6-2.3); POTASSIUM 3.7 mmol/l (3.5-5.1); TOTAL PROTEIN 5.8 g/dL (6.3-8.2)
[2024-05-09 05:23] LABS: ALBUMIN 3.3 g/dL (3.2-5.0)
[2024-05-09] MEDS ORDERED: PANTOPRAZOLE SODIUM Sesquihydr 40 MG/TAB PO SCH (09:00)
[2024-05-09] MEDS ORDERED: FERROUS SULFATE 325 MG/TAB PO SCH (09:00)
[2024-05-09] MEDS ORDERED: FLUTICASONE PROPIONATE (Nasal) 50MCG/SPRAY INH SCH (09:00)
[2024-05-10] VITALS (9 sets, daily range): BP systolic 113–149; BP diastolic 51–75
[2024-05-10 05:57] LABS: BASO% 0.5 % (0-3); EOS% 2.9 % (0-8); HEMATOCRIT 32.6 % (39.0-50.0); HEMOGLOBIN 10.5 g/dl (14.0-18.0); IMMATURE GRANULOCYTES 0.1 % (0.0-5.0); LYMPH% 23.7 % (15-41); MEAN CELL VOLUME 101.2 fL CALC (80.0-100.0); MEAN CORPUSCULAR HGB 32.6 pG CALC (26.0-32.0); MEAN CORPUSCULAR HGB CONC 32.2 g/dL CAL (32.0-36.0); NEUT# 4.66 thou/uL (1.82-7.42); NEUT% 60.8 % (42-76); RED BLOOD COUNT 3.22 mill/uL (4.70-6.10)
[2024-05-10 06:27] LABS: ALBUMIN 2.9 g/dL (3.2-5.0); BILIRUBIN, TOTAL 0.2 mg/dL (0.2-1.3); CREATININE 0.8 mg/dL (0.7-1.3); MAGNESIUM 1.8 mg/dL (1.6-2.3); POTASSIUM 4.2 mmol/l (3.5-5.1); TOTAL PROTEIN 5.3 g/dL (6.3-8.2)
[2024-05-10] MEDS ORDERED: methylPREDNISolone Sod Succ 40 MG/ML SDV IV SCH (10:00)
[2024-05-10] MEDS ORDERED: oxyCODONE HCL 15 MG/TAB PO SCH (11:00)
[2024-05-11 04:20] VITALS: BP 110/36
[2024-05-11 04:43] LABS: BASO% 0.4 % (0-3); HEMATOCRIT 31.4 % (39.0-50.0); HEMOGLOBIN 10.1 g/dl (14.0-18.0); IMMATURE GRANULOCYTES 0.2 % (0.0-5.0); LYMPH% 20.1 % (15-41); MEAN CORPUSCULAR HGB 32.2 pG CALC (26.0-32.0); MEAN CORPUSCULAR HGB CONC 32.2 g/dL CAL (32.0-36.0); MONO% 12.2 % (2-13); NEUT# 3.67 thou/uL (1.82-7.42); NEUT% 67.1 % (42-76); RED BLOOD COUNT 3.14 mill/uL (4.70-6.10); RED CELL DISTRI WIDTH 12.4 % (11.5-15.5)
[2024-05-11 05:11] LABS: ALBUMIN 3.3 g/dL (3.2-5.0); BILIRUBIN, TOTAL 0.3 mg/dL (0.2-1.3); CREATININE 0.7 mg/dL (0.7-1.3); MAGNESIUM 1.9 mg/dL (1.6-2.3); POTASSIUM 4.5 mmol/l (3.5-5.1); TOTAL PROTEIN 5.8 g/dL (6.3-8.2)
[2024-05-11 06:58] VITALS: BP 130/65
[2024-05-11] MEDS ORDERED: DOXYCYCLINE100 MG PO (08:38)
[2024-05-11] MEDS ORDERED: PREDNISONE10 MG PO (08:39)
== END 2024-05-11 10:02 | disposition home or self-care (01) | DRG 603 ==
LOC: ED 11:17 → ED-I 13:29 → ED 13:42 → MS2 13:43
PROVIDERS: Nurse Practitioner Family; ADMIT Student in an Organized Health Care Education/Training Program; ATTEND Student in an Organized Health Care Education/Training Program
DX: L03.116 Cellulitis of left lower limb (principal); M10.072 Idiopathic gout, left ankle and foot; J44.9 Chronic obstructive pulmonary disease, unspecified; E78.00 Pure hypercholesterolemia, unspecified; D64.9 Anemia, unspecified; M15.9 Polyosteoarthritis, unspecified; N40.0 Benign prostatic hyperplasia without lower urinary tract symptoms; F17.290 Nicotine dependence, other tobacco product, uncomplicated; Z87.820 Personal history of traumatic brain injury; Z86.73 Personal history of transient ischemic attack (TIA), and cerebral infarction without residual deficits; Z96.612 Presence of left artificial shoulder joint; Z96.653 Presence of artificial knee joint, bilateral
CPT/HCPCS: J0690; J1650

== ENCOUNTER 2024-07-11 00:42 | Emergency (ER) | payer MEDICARE, MEDICAID ==
[2024-07-11] VITALS (9 sets, daily range): BP systolic 123–143; BP diastolic 62–69
[~2024-07-11] VITALS: Ht 172.7 cm; Wt 55.0 kg
[~2024-07-11 00:42] MED LIST changes: +DOXYCYCLINE100 MG PO
[2024-07-11] MEDS ORDERED: SODIUM CHLORIDE 0.9% 1,000 ML IV STA (01:02)
[2024-07-11] MEDS ORDERED: SODIUM CHLORIDE 0.9% 1,000 ML IV ONE (01:05)
[2024-07-11] MEDS ORDERED: PROMETHAZINE HCL 25 MG/ML AMP IV ONE (01:05)
[2024-07-11 01:34] LABS: BASO% 0.7 % (0-3); EOS% 1.9 % (0-8); HEMATOCRIT 40.5 % (39.0-50.0); HEMOGLOBIN 13.3 g/dl (14.0-18.0); IMMATURE GRANULOCYTES 0.5 % (0.0-5.0); LYMPH% 28.5 % (15-41); MEAN CORPUSCULAR HGB 30.9 pG CALC (26.0-32.0); MEAN CORPUSCULAR HGB CONC 32.8 g/dL CAL (32.0-36.0); MONO% 12.9 % (2-13); NEUT# 4.17 thou/uL (1.82-7.42); NEUT% 55.5 % (42-76); RED BLOOD COUNT 4.3 mill/uL (4.70-6.10); RED CELL DISTRI WIDTH 12.3 % (11.5-15.5)
[2024-07-11 01:36] LABS: MEAN CELL VOLUME 94.2 fL CALC (80.0-100.0)
[2024-07-11 01:43] LABS: ALBUMIN 4.3 g/dL (3.2-5.0); BILIRUBIN, TOTAL 0.4 mg/dL (0.2-1.3); POTASSIUM 2.6 mmol/l (3.5-5.1); TOTAL PROTEIN 7.2 g/dL (6.3-8.2)
[2024-07-11] MEDS ORDERED: 0.9% NaCL W/KCL 20 MEQ 1,000 ML IV SCH (02:40)
[2024-07-11] MEDS ORDERED: POTASSIUM CHLORIDE 20 MEQ/TAB PO ONE (02:40)
[2024-07-11 03:18] LABS: URINE BILIRUBIN - DIPSTICK Negative (NEGATIVE); URINE BLOOD DIPSTICK Negative (NEGATIVE); URINE GLUCOSE - DIPSTICK Negative (NEGATIVE); URINE KETONE Negative (NEGATIVE); URINE LEUK ESTERASE Negative (NEGATIVE); URINE NITRITE - DIPSTICK Negative (Negative); URINE PROTEIN - DIPSTICK Negative (NEG-TRACE); URINE SPECIFIC GRAVITY 1.015; URINE UROBILINOGEN - DIPSTICK 0.2 E.U./dL (0.2)
[2024-07-11 03:19] LABS: URINE COLOR Yellow
[2024-07-11] MEDS ORDERED: ONDANSETRON HCl 4 MG/2 ML SDV IV STA (03:58)
[2024-07-11] MEDS ORDERED: PROCHLORPER25 MG RE (04:06)
[2024-07-11] MEDS ORDERED: POTASSIUM CHLO20 ME1 PO (04:06)
== END 2024-07-11 04:46 | disposition home or self-care (01) ==
LOC: ED 00:42
PROVIDERS: Family Medicine
DX: R11.2 Nausea with vomiting, unspecified (principal); E87.6 Hypokalemia; J44.9 Chronic obstructive pulmonary disease, unspecified; Z86.73 Personal history of transient ischemic attack (TIA), and cerebral infarction without residual deficits; Z87.820 Personal history of traumatic brain injury; Z72.0 Tobacco use; Z20.822 Contact with and (suspected) exposure to COVID-19
CPT/HCPCS: Q9967